=== PATIENT | female | born 1940 | race Caucasian/White ===

== ENCOUNTER 2020-11-05 11:16 | Emergency (ER) | payer MEDICARE, SELFPAY ==
--- NOTE | ~2020-11-05 | CT_ITS ---
EXAMINATION: CT HEAD WITHOUT CONTRAST CLINICAL INFORMATION: Dizziness. Nausea. COMPARISON: Brain MRI October 2017 TECHNIQUE: Contiguous axial imaging was performed from the skull base to vertex without intravenous administration of contrast. This CT examination was performed using dose optimization techniques as appropriate, variously including the following: *Automated exposure control *Adjustment of mA and/or kV according to patient size (this includes techniques or standardized protocols for targeted exams where dose is matched to indication/reason for exam; i.e. extremities or head) *Use of iterative reconstruction technique DLP: 612 mGy-cm FINDINGS: There is no evidence of acute intracranial hemorrhage or territorial infarction. No abnormal mass effect or midline shift is seen. [place] to white matter differentiation is well preserved. No extra-axial fluid collections are identified. The ventricles are normal in size. There is no abnormal attenuation within the brain parenchyma. The osseous structures and soft tissues are normal. The mastoid air cells and visualized portions of the paranasal sinuses are well aerated. CT/CT head/brain wo con IMPRESSION: Unremarkable exam.
--- NOTE | ~2020-11-05 | MR_ITS ---
EXAMINATION: MR BRAIN WITHOUT CONTRAST CLINICAL INFORMATION: Dizziness. COMPARISON: Brain MRI from 10/29/2017. CT head from 11/05/2020. TECHNIQUE: MRI of the brain was obtained using routine sequences without contrast. FINDINGS: No focal restricted diffusion is demonstrated to suggest acute or subacute cerebral ischemia. Chronic lacunar infarcts of the bilateral thalamic, right caudate body, and left cerebellar hemisphere. Mild hemosiderin staining associated with the lacunar infarct in the left cerebellar hemisphere. Punctate focus of susceptibility artifact in the left occipital lobe consistent with petechial microhemorrhage. Basal ganglia mineralization. No evidence of acute hemorrhagic products on heme-sensitive imaging. Scattered periventricular, deep white matter, and brainstem T2 FLAIR hyperintensities consistent with mild to moderate underlying microangiopathy. Proportional prominence of the ventricles and sulcal spaces without evidence of obstructive hydrocephalus. No abnormal mass effect. No midline shift. Normal appearance of the pituitary gland. Normal positioning of the cerebellar tonsils. Normal arterial and venous vascular flow voids are present. Normal, homogeneous marrow signal. Mild mucosal thickening of the paranasal sinuses. Small right-sided mastoid confusion. Pneumatization of the right petrous apex. Small left-sided mastoid effusion involving the petrous apex. MR/MR head/brain wo con IMPRESSION: 1. No acute intracranial abnormalities. 2. Mild to moderate underlying microangiopathy and generalized cerebral volume loss. 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 3. Small bilateral mastoid effusions.
--- NOTE | ~2020-11-05 | XR_ITS ---
EXAMINATION: XR CHEST CLINICAL INFORMATION: Dizziness and nausea COMPARISON: Previous chest x-ray most recent June 2017 TECHNIQUE: 2 views of the chest were obtained. FINDINGS: There is a new aortic valve stent graft. The cardiac and mediastinal contours are otherwise unremarkable. The lungs are clear. There is no pleural effusion or pneumothorax. There are degenerative changes of the spine. XR/XR chest 2V IMPRESSION: No evidence for acute disease in the chest.
[2020-11-05 13:10] VITALS: BP 143/52; PULSE 72; RESP 16; TEMP 35.9; O2SAT 97; BMI 29.1
--- NOTE | 2020-11-05 13:13 | ECG_ITS ---
Test Reason : DIZZINESS Blood Pressure : / mmHG Vent. Rate : 065 BPM Atrial Rate : 065 BPM P-R Int : 158 ms QRS Dur : 080 ms QT Int : 448 ms P-R-T Axes : 026 029 050 degrees QTc Int : 465 ms Normal sinus rhythm Normal ECG When compared with ECG of 29-OCT-2017 13:08, No significant change was found Referred By: Jacquelin Porter Electronically Signed By:NIMISHA NAYAK
--- NOTE | 2020-11-05 13:51 | ED.DIZZY ---
HPI - Dizziness General Chief Complaint: Dizziness Stated Complaint: DIZZY NAUSEA Time Seen by Provider: 11/05/20 13:10 Related Data Previous Rx's Medication Instructions Recorded meclizine 25 mg tablet 25 mg PO TID PRN #15 tab 11/05/20 ondansetron HCl 4 mg tablet 4 mg PO Q8H PRN #14 tab 11/05/20 (Zofran) Allergies Allergy/AdvReac Type Severity Reaction Status Date / Time No Known Allergies Allergy Unknown UNKNOWN Unverified 11/10/19 19:16 [NO KNOWN ALLERGIES] [facility] Past Medical History Medical History Diabetes Hypertension Surgical History (Updated 11/05/20 @ 13:13 by Shawna Berman RN) History of artificial heart valve Social History Social History Advance Directives: Yes Advance Directives Information Provided: Yes Advance Directives on File: No Physical Exam Vital Signs: Vital Signs: Last Vital Signs Temp 99.1 F 11/05/20 22:45 Pulse 88 11/05/20 22:45 Resp 16 11/05/20 22:45 BP 169/72 H 11/05/20 22:45 Pulse Ox 96 11/05/20 22:45 Body Mass Index 29.1 Course Course Course Narrative: 13:15pm - 80-year-old female presenting to the ED with complaints of 4-5 days of dizziness worse with standing with associated nausea. She reports that she got up from her bed a few days ago and she fell back into her bed due to she was so dizzy and she was unable to walk. On exam patient is alert and oriented x3. Not in any acute distress. Vital signs are stable within normal limits. She does not have any focal neuro deficits noted on my exam. Therefore patient was sent back to the waiting room and she will be evaluated in the main ED for further evaluation treatment labs along with EKG, chest x-ray and CT scan of brain was ordered at this time. MDM - Dizziness Lab Data Result diagrams: 11/05/20 15:03 11/05/20 15:03 Labs: Lab Results 11/05/20 11/05/20 11/05/20 Range/Units 15:03 15:03 15:03 WBC 12.1 H (4.8-10.8) X10*3/uL RBC 5.25 (4.20-5.50) X10*6/uL Hgb 15.6 (12.0-16.0) g/dl Hct 46.5 (37-47) % MCV 88.6 (80-98) fL MCH 29.7 (27.0-33.0) pg MCHC 33.5 (31.0-35.0) g/dl RDW 13.8 (11.0-16.0) % Plt Count 229 (160-400) X10*3/uL MPV 10.0 (9.4-12.3) fL Immature Gran % (Auto) 0.4 (0.0-0.4) % Neut % (Auto) 68.2 (45-73) % Lymph % (Auto) 20.4 (20-40) % [place] % (Auto) 7.9 (2-11) % Eos % (Auto) 2.5 (0-4) % Baso % (Auto) 0.6 (0-2) % Lymph # (Auto) 2.5 (1.2-4.9) X10*3/uL [place] # (Auto) 1.0 (0.1-1.2) X10*3/uL Eos # (Auto) 0.3 (0.0-0.4) X10*3/uL Baso # (Auto) 0.1 (0.0-0.2) X10*3/uL Abs Immat Gran (auto) 0.05 H (0.00-0.03) X10*3/uL Absolute Neuts (auto) 8.3 (2.0-8.3) X10*3/uL Absolute Nucleated RBC 0.000 (0.0-0.012) X10*3/uL Nucleated RBC % (auto) 0.0 (0.0-0.2) /100WBC PT 11.1 (9.9-13.0) SEC INR 1.0 (0.9-1.1) Sodium (135-145) mmol/L Potassium (3.3-5.1) mmol/L Chloride (96-108) mmol/L Carbon Dioxide (22-29) mmol/L Anion Gap (12-20) BUN (9-16) mg/dL Creatinine (0.5-1.4) mg/dL Estim Creat Clear Calc Estimated GFR POC Glucose (60-115) mg/dL Random Glucose (60-115) mg/dL Calcium (8.4-10.2) mg/dL Magnesium 2.1 (1.6-2.6) mg/dL Total Bilirubin (0.0-1.0) mg/dL AST (5-31) U/L ALT (0-31) U/L Alkaline Phosphatase (39-117) U/L Troponin I High Sens (<3.5-17.0) ng/L Total Protein (6.5-8.0) g/dL Albumin (3.5-5.0) g/dL 11/05/20 11/05/20 11/05/20 Range/Units 15:03 15:03 20:17 WBC (4.8-10.8) X10*3/uL RBC (4.20-5.50) X10*6/uL Hgb (12.0-16.0) g/dl Hct (37-47) % MCV (80-98) fL MCH (27.0-33.0) pg MCHC (31.0-35.0) g/dl RDW (11.0-16.0) % Plt Count (160-400) X10*3/uL MPV (9.4-12.3) fL Immature Gran % (Auto) (0.0-0.4) % Neut % (Auto) (45-73) % Lymph % (Auto) (20-40) % [place] % (Auto) (2-11) % Eos % (Auto) (0-4) % Baso % (Auto) (0-2) % Lymph # (Auto) (1.2-4.9) X10*3/uL [place] # (Auto) (0.1-1.2) X10*3/uL Eos # (Auto) (0.0-0.4) X10*3/uL Baso # (Auto) (0.0-0.2) X10*3/uL Abs Immat Gran (auto) (0.00-0.03) X10*3/uL Absolute Neuts (auto) (2.0-8.3) X10*3/uL Absolute Nucleated RBC (0.0-0.012) X10*3/uL Nucleated RBC % (auto) (0.0-0.2) /100WBC PT (9.9-13.0) SEC INR (0.9-1.1) Sodium 143 (135-145) mmol/L Potassium 4.6 (3.3-5.1) mmol/L Chloride 106 (96-108) mmol/L Carbon Dioxide 26 (22-29) mmol/L Anion Gap 16 (12-20) BUN 18 H (9-16) mg/dL Creatinine 0.86 (0.5-1.4) mg/dL Estim Creat Clear Calc 54.3 Estimated GFR > 60 POC Glucose 160 H (60-115) mg/dL Random Glucose 150 H (60-115) mg/dL Calcium 9.8 (8.4-10.2) mg/dL Magnesium (1.6-2.6) mg/dL Total Bilirubin 0.8 (0.0-1.0) mg/dL AST 12 (5-31) U/L ALT 12 (0-31) U/L Alkaline Phosphatase 115 (39-117) U/L Troponin I High Sens 8.4 (<3.5-17.0) ng/L Total Protein 7.3 (6.5-8.0) g/dL Albumin 4.7 (3.5-5.0) g/dL Discharge Plan Discharge Clinical Impression: Dizziness Patient Disposition: Home, Self-Care Instructions: Dizziness (ED) Prescriptions: New ondansetron HCl [Zofran] 4 mg tablet 4 mg PO Q8H PRN (Reason: nausea and vomiting) Qty: 14 RF: 0 meclizine 25 mg tablet 25 mg PO TID PRN (Reason: dizziness) Qty: 15 RF: 0 Interventions: ED Discharge Assessment Last Done: 11/05/20 23:32 Discharge Date/Time: 11/05/20 23:34
[2020-11-05 15:11] LABS: MANUAL DIFF FLAG NO
[2020-11-05 15:16] LABS: Basophils Absolute Auto 0.1 X10*3/uL (0.0-0.2); Basophils Percent Auto 0.6 % (0-2); Eosinophils Absolute Auto 0.3 X10*3/uL (0.0-0.4); Eosinophils Percent Auto 2.5 % (0-4); Hematocrit 46.5 % (37-47); Hemoglobin 15.6 g/dl (12.0-16.0); Imm Gran Abs Auto 0.05 X10*3/uL (0.00-0.03); Imm Gran Pct Auto 0.4 % (0.0-0.4); Lymphocytes Absolute Auto 2.5 X10*3/uL (1.2-4.9); Lymphocytes Percent Auto 20.4 % (20-40); Mean Corpuscular HGB Conc 33.5 g/dl (31.0-35.0); Mean Corpuscular Hemoglobin 29.7 pg (27.0-33.0); Mean Corpuscular Volume 88.6 fL (80-98); Monocytes Percent Auto 7.9 % (2-11); Neutrophils Absolute Auto 8.3 X10*3/uL (2.0-8.3); Neutrophils Percent Auto 68.2 % (45-73); Platelet Count 229 X10*3/uL (160-400); Red Blood Count 5.25 X10*6/uL (4.20-5.50); Red Cell Distribution Width 13.8 % (11.0-16.0); White Blood Count 12.1 X10*3/uL (4.8-10.8)
[2020-11-05 15:22] LABS: Prothrombin Time 11.1 SEC (9.9-13.0)
[2020-11-05 15:28] LABS: Magnesium 2.1 mg/dL (1.6-2.6)
[2020-11-05 15:29] LABS: Alanine Aminotransferase 12 U/L (0-31); Albumin Level 4.7 g/dL (3.5-5.0); Alkaline Phosphatase 115 U/L (39-117); Anion Gap 16 (12-20); Aspartate Amino Transferase 12 U/L (5-31); Bilirubin Total 0.8 mg/dL (0.0-1.0); Blood Urea Nitrogen 18 mg/dL (9-16); Calcium 9.8 mg/dL (8.4-10.2); Carbon Dioxide 26 mmol/L (22-29); Chloride 106 mmol/L (96-108); Creatinine Clr Calc Pharmacy 54.3; Estimated Glomerular Filt Rate > 60; Glucose Random 150 mg/dL (60-115); Potassium 4.6 mmol/L (3.3-5.1); Sodium 143 mmol/L (135-145); Total Protein 7.3 g/dL (6.5-8.0)
[2020-11-05 15:33] LABS: Troponin-I High Sensitivity 8.4 ng/L (<3.5-17.0)
[2020-11-05 18:45] VITALS: BP 171/74; PULSE 74; RESP 16; TEMP 35.9; O2SAT 96
--- NOTE | 2020-11-05 19:47 | ED_ITS ---
HPI - Dizziness General Chief Complaint: Dizziness Stated Complaint: DIZZY NAUSEA Time Seen by Provider: 11/05/20 13:10 Source: patient Mode of arrival: ambulatory Limitations: no limitations History of Present Illness HPI Narrative: dizzness X 5 Days elicited complaint: dizziness Onset (ago): day(s) (4) Timing: gradual onset Severity: moderate Description: off-balance Context: change in medication History of similar symptoms: Yes Exacerbating factors: nothing Relieving factors: nothing Related Data Previous Rx's Medication Instructions Recorded meclizine 25 mg tablet 25 mg PO TID PRN #15 tab 11/05/20 ondansetron HCl 4 mg tablet 4 mg PO Q8H PRN #14 tab 11/05/20 (Zofran) Allergies Allergy/AdvReac Type Severity Reaction Status Date / Time No Known Allergies Allergy Unknown UNKNOWN Unverified 11/10/19 19:16 [NO KNOWN ALLERGIES] Review of Systems Review of Systems: Yes all other systems are reviewed and are negative Constitutional: Constitutional: Reports no additional constitutional complaints ENT: Reports system reviewed and no additional complaints, except as documented and Reports dizziness Cardiovascular: Cardiovascular: Reports no additional cardiovascular complaints Respiratory: Respiratory: Reports no additional respiratory complaints Gastrointestinal: Gastrointestinal: Reports no additional gastrointestinal complaints, Denies abdominal pain and Denies belching Musculoskeletal: Musculoskeletal: Reports no additional musculoskeletal complaints Neurologic: Denies confusion and Reports dizziness Psychiatric: Psychiatric: Denies confusion [facility] Past Medical History Attestation statement: The following information was validated with the patient. Medical History Diabetes Hypertension Surgical History (Updated 11/05/20 @ 13:13 by Shawna Berman RN) History of artificial heart valve Social History Social History Advance Directives: Yes Advance Directives Information Provided: Yes Advance Directives on File: No Physical Exam Vital Signs: Vital Signs: Last Vital Signs Temp 96.7 F L 11/05/20 18:45 Pulse 74 11/05/20 18:45 Resp 16 11/05/20 18:45 BP 171/74 H 11/05/20 18:45 Pulse Ox 96 11/05/20 18:45 Body Mass Index 29.1 Const: General: No confusion Orientation/consciousness: oriented to person, oriented to place, oriented to time, patient oriented x3 and No confusion HENMT: Head: Yes normal to inspection General nose exam: Normal external nose present Face and sinus: Yes normal facial exam Mouth: Normal oral and palatal mucosa present Eyes: Other: non nistagmus General: appearance normal, both eyes and all related structures Visual Jewell: normal visual jewell by confrontation Alignment and Position: alignment normal Conjunctivae: conjunctivae normal EOM: EOMs intact bilaterally Neck: Neck: Yes normal visual inspection and Yes full ROM Thyroid: Thyroid normal Carotids: normal carotid upstroke Chest: Chest palpation & inspection: normal inspection of the chest Resp: Effort & Inspection: normal respiratory effort Auscultation: clear to auscultation bilaterally Cardio: Jugular venous distension: no JVD Rate: regular rate Rhythm: regular rhythm GI: Inspection: Yes normal to inspection and No distended Palpation (GI): Soft to palpation, not firm, nontender and no guarding Auscultation: normal bowel sounds : General: Yes no CVA tenderness Back/Spine/Pelvis: Back: no CVA tenderness Skin: General skin exam: no rashes or lesions noted, elasticity normal, turgor normal and atrophy Rashes: no rashes Neuro: General: oriented to person, oriented to place, oriented to time, patient oriented x3, CN's II-XI intact bilaterally and No confusion Course Reevaluation(s) Reevaluation #1: she is feeling better MRI brain brain normal,OK to d/c home with follow up with PCP Reevaluation #2: Spoke with the daughter at length as well Pt ambulating with steady gait MDM - Dizziness Lab Data Result diagrams: 11/05/20 15:03 11/05/20 15:03 Labs: Lab Results 11/05/20 11/05/20 11/05/20 Range/Units 15:03 15:03 15:03 WBC 12.1 H (4.8-10.8) X10*3/uL RBC 5.25 (4.20-5.50) X10*6/uL Hgb 15.6 (12.0-16.0) g/dl Hct 46.5 (37-47) % MCV 88.6 (80-98) fL MCH 29.7 (27.0-33.0) pg MCHC 33.5 (31.0-35.0) g/dl RDW 13.8 (11.0-16.0) % Plt Count 229 (160-400) X10*3/uL MPV 10.0 (9.4-12.3) fL Immature Gran % (Auto) 0.4 (0.0-0.4) % Neut % (Auto) 68.2 (45-73) % Lymph % (Auto) 20.4 (20-40) % [place] % (Auto) 7.9 (2-11) % Eos % (Auto) 2.5 (0-4) % Baso % (Auto) 0.6 (0-2) % Lymph # (Auto) 2.5 (1.2-4.9) X10*3/uL [place] # (Auto) 1.0 (0.1-1.2) X10*3/uL Eos # (Auto) 0.3 (0.0-0.4) X10*3/uL Baso # (Auto) 0.1 (0.0-0.2) X10*3/uL Abs Immat Gran (auto) 0.05 H (0.00-0.03) X10*3/uL Absolute Neuts (auto) 8.3 (2.0-8.3) X10*3/uL Absolute Nucleated RBC 0.000 (0.0-0.012) X10*3/uL Nucleated RBC % (auto) 0.0 (0.0-0.2) /100WBC PT 11.1 (9.9-13.0) SEC INR 1.0 (0.9-1.1) Sodium (135-145) mmol/L Potassium (3.3-5.1) mmol/L Chloride (96-108) mmol/L Carbon Dioxide (22-29) mmol/L Anion Gap (12-20) BUN (9-16) mg/dL Creatinine (0.5-1.4) mg/dL Estim Creat Clear Calc Estimated GFR POC Glucose (60-115) mg/dL Random Glucose (60-115) mg/dL Calcium (8.4-10.2) mg/dL Magnesium 2.1 (1.6-2.6) mg/dL Total Bilirubin (0.0-1.0) mg/dL AST (5-31) U/L ALT (0-31) U/L Alkaline Phosphatase (39-117) U/L Troponin I High Sens (<3.5-17.0) ng/L Total Protein (6.5-8.0) g/dL Albumin (3.5-5.0) g/dL 11/05/20 11/05/20 11/05/20 Range/Units 15:03 15:03 20:17 WBC (4.8-10.8) X10*3/uL RBC (4.20-5.50) X10*6/uL Hgb (12.0-16.0) g/dl Hct (37-47) % MCV (80-98) fL MCH (27.0-33.0) pg MCHC (31.0-35.0) g/dl RDW (11.0-16.0) % Plt Count (160-400) X10*3/uL MPV (9.4-12.3) fL Immature Gran % (Auto) (0.0-0.4) % Neut % (Auto) (45-73) % Lymph % (Auto) (20-40) % [place] % (Auto) (2-11) % Eos % (Auto) (0-4) % Baso % (Auto) (0-2) % Lymph # (Auto) (1.2-4.9) X10*3/uL [place] # (Auto) (0.1-1.2) X10*3/uL Eos # (Auto) (0.0-0.4) X10*3/uL Baso # (Auto) (0.0-0.2) X10*3/uL Abs Immat Gran (auto) (0.00-0.03) X10*3/uL Absolute Neuts (auto) (2.0-8.3) X10*3/uL Absolute Nucleated RBC (0.0-0.012) X10*3/uL Nucleated RBC % (auto) (0.0-0.2) /100WBC PT (9.9-13.0) SEC INR (0.9-1.1) Sodium 143 (135-145) mmol/L Potassium 4.6 (3.3-5.1) mmol/L Chloride 106 (96-108) mmol/L Carbon Dioxide 26 (22-29) mmol/L Anion Gap 16 (12-20) BUN 18 H (9-16) mg/dL Creatinine 0.86 (0.5-1.4) mg/dL Estim Creat Clear Calc 54.3 Estimated GFR > 60 POC Glucose 160 H (60-115) mg/dL Random Glucose 150 H (60-115) mg/dL Calcium 9.8 (8.4-10.2) mg/dL Magnesium (1.6-2.6) mg/dL Total Bilirubin 0.8 (0.0-1.0) mg/dL AST 12 (5-31) U/L ALT 12 (0-31) U/L Alkaline Phosphatase 115 (39-117) U/L Troponin I High Sens 8.4 (<3.5-17.0) ng/L Total Protein 7.3 (6.5-8.0) g/dL Albumin 4.7 (3.5-5.0) g/dL Imaging Data MRI - head: Radiologist's impression: ?in the left occipital lobe consistent with petechial microhemorrhage. Basal ganglia mineralization. No evidence of acute hemorrhagic products on heme-sensitive imaging. Scattered periventricular, deep white matter, and brainstem T2 FLAIR hyperintensities consistent with mild to moderate underlying microangiopathy. Proportional prominence of the ventricles and sulcal spaces without evidence of obstructive hydrocephalus. No abnormal mass effect. No midline shift. Normal appearance of the pituitary gland. Normal positioning of the cerebellar tonsils. Normal arterial and venous vascular flow voids are present. Normal, homogeneous marrow signal. Mild mucosal thickening of the paranasal sinuses. Small right-sided mastoid confusion. Pneumatization of the right petrous apex. Small left-sided mastoid effusion involving the petrous apex. MR/MR head/brain wo con IMPRESSION: 1. No acute intracranial abnormalities. 2. Mild to moderate underlying microangiopathy and generalized cerebral volume loss. 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 3. Small bilateral mastoid effusions. ECG Data Pacemaker model: NSR 65 no ischemic changes Discharge Plan Discharge Clinical Impression: Dizziness Patient Disposition: Home, Self-Care Instructions: Dizziness (ED) Prescriptions: New ondansetron HCl [Zofran] 4 mg tablet 4 mg PO Q8H PRN (Reason: nausea and vomiting) Qty: 14 RF: 0 meclizine 25 mg tablet 25 mg PO TID PRN (Reason: dizziness) Qty: 15 RF: 0
[2020-11-05 20:21] LABS: Glucose, Whole Blood 160 mg/dL (60-115)
[2020-11-05] MEDS: ondansetron HCL 4 MG/2 ML VIAL IVPUSH (21:35)
[2020-11-05] MEDS: 0.9 % Sodium Chloride 1,000 ML 999 ML IVCONT (21:35)
[2020-11-05] MEDS: Meclizine HCl 25 MG TABLET PO (21:36)
[2020-11-05 22:45] VITALS: BP 169/72; PULSE 88; RESP 16; TEMP 37.3; O2SAT 96
--- NOTE | 2020-11-05 23:32 | PC.NURSE ---
PT NO LONGER EXPERIENCING DIZZINESS FOLLOWING MECLIZINE. PT ABLE TO AMBULATE WITH STEADY GAIT. PT WAS NOT FEELING DIZZY AT HOME WHILE SUPINE, BUT INCREASED WHEN SEATED OR AMBULATORY. PT NO LONGER FEELING NAUSEA.
--- NOTE | 2020-11-05 23:34 | PC.NURSE ---
PT DID HAVE SANDWICH AND SODA AN HOUR AGO, NO VOMITING.
== END 2020-11-05 23:34 | disposition home or self-care (01) ==
PROVIDERS: Physician Assistant Medical; Emergency Provider Emergency Medicine
DX: R42 Dizziness and giddiness (principal); R11.0 Nausea; Z79.899 Other long term (current) drug therapy
CPT/HCPCS: 36415; 70450; 70551; 71046; 80053; 82947; 83735; 84484; 85025; 85610; 93005; 96361; 96365; 96374; 96375; 99284; 99285; J2405

== ENCOUNTER → 2021-11-04 10:52 | Outpatient (BNVA) | payer MEDICARE, SELFPAY | PROVIDERS: PCP Internal Medicine; Visit Provider Internal Medicine | DX: I48.0 Paroxysmal atrial fibrillation (principal); I05.9 Rheumatic mitral valve disease, unspecified; I73.9 Peripheral vascular disease, unspecified; I10 Essential (primary) hypertension; Z95.3 Presence of xenogenic heart valve | CPT/HCPCS: 93005; 99212 ==

== ENCOUNTER → 2021-11-26 14:56 | Outpatient (REF) | payer MEDICARE, SELFPAY ==
--- NOTE | 2021-11-26 14:59 | HM_ITS ---
Conclusion: 1. Patient was monitored for total period of 2 days and 22 hours 2. Baseline rhythm is normal sinus rhythm with average heart rate of 67 beats per minute 3. No significant pauses or bradycardia noted 4. Very rare ectopy noted 5. No patient reported events MTDD
== END ==
LOC: HO.CARD 14:56
PROVIDERS: Visit Provider Internal Medicine
DX: I48.0 Paroxysmal atrial fibrillation (principal)
CPT/HCPCS: 93242

== ENCOUNTER → 2022-02-11 13:56 | Outpatient (BNVA) | payer MEDICARE, SELFPAY | PROVIDERS: PCP Internal Medicine; Visit Provider Internal Medicine | DX: I48.0 Paroxysmal atrial fibrillation (principal); I05.9 Rheumatic mitral valve disease, unspecified; I73.9 Peripheral vascular disease, unspecified; I10 Essential (primary) hypertension; Z95.3 Presence of xenogenic heart valve; Z79.01 Long term (current) use of anticoagulants | CPT/HCPCS: 99212 ==

== ENCOUNTER → 2022-08-14 13:20 | Outpatient (BNVA) | payer MEDICARE, SELFPAY | PROVIDERS: PCP Internal Medicine; Referring Provider Internal Medicine; Visit Provider Internal Medicine | DX: I48.0 Paroxysmal atrial fibrillation (principal); I05.9 Rheumatic mitral valve disease, unspecified; I73.9 Peripheral vascular disease, unspecified; I10 Essential (primary) hypertension; Z95.3 Presence of xenogenic heart valve | CPT/HCPCS: 93005; 99212 ==

== ENCOUNTER 2023-07-07 11:00 | Emergency (ER) | payer MEDICARE, SELFPAY ==
[2023-07-07 11:07] VITALS: BP 135/61; PULSE 78; O2SAT 97
[2023-07-07 11:12] VITALS: BP 123/42; PULSE 74; RESP 16; TEMP 36.8; O2SAT 96; BMI 30.9
--- NOTE | 2023-07-07 12:14 | ED.GENADULT ---
HPI - General Adult General Chief complaint: General Medical Stated complaint: LOW BACK PAIN,BLISTERING PER DTR/?'S SHINGLES Time Seen by Provider: 07/07/23 12:14 Source: patient and EMS Mode of arrival: EMS Limitations: no limitations History of Present Illness HPI narrative: 82 yo female with history of diabetes, HTN, paroxysmal AFib on Xarelto, peripheral vascular disease, severe aortic stenosis status post TAVR who presents to the ER from home via EMS for severe pain in her lower back and right buttock area with a new rash for the last 3 days. Patient reports the rash is burning and 10/10 in severity. She reports she initially thought rash was just a small bedsores she has a history of a bedsore about 2 months ago. She was given a topical cream by her PCP which resulted in near complete resolution. She tried the cream again for this rash however did not help. MD complaint: Painful rash on lower back/right buttock Onset (ago): day(s) (3) Location: buttocks Radiation: distal Severity: severe Severity scale (1-10): 10 Quality: burning Pain Consistency: constant Relieving factors: none Exacerbating factors: movement Treatments prior to arrival: other (tramadol) Related Data Home Medications ?Medication ?Instructions ?Recorded ?Confirmed albuterol sulfate 90 mcg/actuation 0 mcg inhalation 11/04/21 08/14/22 aerosol inhaler amlodipine 10 mg tablet 10 mg PO DAILY 11/04/21 08/14/22 apixaban 5 mg tablet (Eliquis) 5 mg PO BID 11/04/21 08/14/22 aspirin 81 mg tablet,delayed 81 mg PO DAILY 11/04/21 08/14/22 release atorvastatin 40 mg tablet 40 mg PO DAILY 11/04/21 08/14/22 insulin detemir U-100 100 unit/mL 37 unit subcut BEDTIME 11/04/21 08/14/22 (3 mL) subcutaneous pen (Levemir FlexTouch U-100 Insulin) insulin lispro 100 unit/mL 15 unit subcut BID 11/04/21 08/14/22 subcutaneous pen (Humalog KwikPen (U-100) Insulin) losartan 25 mg tablet 25 mg PO DAILY 11/04/21 08/14/22 metoclopramide HCl 10 mg tablet 10 mg PO QID 11/04/21 08/14/22 metoprolol succinate 100 mg 150 mg PO DAILY 11/04/21 08/14/22 tablet,extended release 24 hr omeprazole 20 mg capsule,delayed 20 mg PO DAILY 11/04/21 08/14/22 release pregabalin 75 mg capsule 75 mg PO BID 11/04/21 08/14/22 tiotropium bromide 18 mcg capsule 1 cap inhalation DAILY 11/04/21 08/14/22 with inhalation device (Spiriva with HandiHaler) venlafaxine 37.5 mg 37.5 mg PO DAILY 11/04/21 08/14/22 capsule,extended release 24 hr cholecalciferol (vitamin D3) 25 25 mcg PO DAILY 02/11/22 08/14/22 mcg (1,000 unit) tablet (Vitamin D3) tramadol 50 mg tablet 50 mg PO TID PRN 02/11/22 08/14/22 Previous Rx's ?Medication ?Instructions ?Recorded valacyclovir 1 gram tablet 1,000 mg PO Q8H 7 days #21 tabs 07/07/23 Allergies Allergy/AdvReac Type Severity Reaction Status Date / Time No Known Allergies Allergy Unknown UNKNOWN Verified 07/07/23 11:24 [NO KNOWN ALLERGIES] Review of Systems Review of Systems: Yes all other systems are reviewed and are negative [facility] Past Medical History Medical History (Updated 07/07/23 @ 12:23 by MAURICE Dominguez) Essential hypertension Peripheral vascular disease Mitral annular calcification PAF (paroxysmal atrial fibrillation) Hypertension Diabetes Surgical History History of artificial heart valve Status post transcatheter aortic valve replacement (TAVR) using bioprosthesis Family History Family History Father Diabetes CAD (coronary artery disease) Mother CAD (coronary artery disease) Social History Social History Alcohol intake: never Patient Tobacco Use Status: Former Tobacco user Smoked in Last 30 Days: No Use of substances other than those prescribed or required for medical reasons: No Advance Directives: Yes Advance Directives on File: No Do you have a plan to hurt others: No Plan Physical Exam ED Vital Signs: Vital Signs - 24 hr 07/07/23 11:12 Temperature 98.2 F Pulse Rate 74 Respiratory Rate 16 Blood Pressure 123/42 L Pulse Oximetry 96 Oxygen Delivery Method Room Air BMI result Body Mass Index 30.9 Appearance: Alert. Oriented X3. No acute distress. Head: normocephalic, atraumatic. Eyes: Pupils equal, round and reactive to light. ENT: Pharynx normal. No tonsillar swelling or exudate. Neck: Normal inspection. CVS: Normal heart rate and rhythm. Pulses normal. Respiratory: No respiratory distress. Breath sounds normal. Abdomen: Soft and nontender. +BS x4 Skin: Skin warm and dry. Normal skin color. Normal skin turgor. vesicular rash on right gluteal region, tender Extremities: No lower extremity edema. No joint swelling. Neuro/psych: Oriented X 3. No motor deficit. No sensory deficit. CN II-XII intact. Normal speech and cognition. Medications Administered Discontinued Medications Generic Name Dose Route Start Last Admin Trade Name Freq PRN Reason Stop Dose Admin Acetaminophen 975 mg 07/07/23 12:22 07/07/23 12:30 Acetaminophen 325 Mg Tablet PO 07/07/23 12:23 975 mg ONCE ONE Administration Gabapentin 100 mg 07/07/23 12:22 07/07/23 12:29 Gabapentin 100 Mg Capsule PO 07/07/23 12:23 100 mg ONCE ONE Administration Valacyclovir HCl 1,000 mg 07/07/23 12:22 07/07/23 12:29 Valacyclovir Hcl 1,000 Mg Tablet PO 07/07/23 12:23 1,000 mg ONCE ONE Administration Medical Decision Making Medical Decision Making MDM Narrative: 82-year-old female with history of aortic stenosis status post TAVR, atrial fibrillation on anticoagulation, HTN, PVD who presents to the ER for evaluation of a painful, 10/10 burning rash on her low back and right buttock. Exam is consistent with shingles. No rectal involvement. Rash started 3 days ago. Will start her on antivirals now and initiate a 7 day course. She is already on gabapentin and tramadol at home for pain. Will continue these medications. Stable for discharge home. Differential Diagnosis Differential Diagnoses: The differential diagnosis associated with the presentation includes Shingles, disseminated zoster, cellulitis, perirectal abscess Independent Historian Clinical information obtained from an independent historian. History obtained from or confirmed by: EMS External Record Review External record reviewed: Outpatient record and Prior outpatient labs Prescription Management I considered prescription management with: Pain Medication and Antiviral Chronic Conditions Patient?s care impacted by: Hypertension and Other (AFib, chronic pain) Critical Care Time Critical Care Time Critical Care Time: No Discharge Plan Discharge Clinical Impression: Herpes zoster Qualifiers: Herpes zoster complications: without complications Qualified Code(s): B02.9 - Zoster without complications Patient Disposition: Home, Self-Care Instructions: Shingles (ED) Additional Instructions: You have a shingles rash. Take the prescribed antiviral medication as directed. Complete the entire course and do not miss any doses. Your given 1st dose today in the emergency department, next dose is due around 830 tonight. Take the previously prescribed gabapentin that will help with nerve pain. Recommend Tylenol 975 mg every 8 hours around the clock for pain. Follow-up with your doctor. If you develop new or worsening symptoms call 911 or come back to the ER for further evaluation. Prescriptions: New valacyclovir 1 gram tablet 1,000 mg PO Q8H 7 Days Qty: 21 0RF No Action cholecalciferol (vitamin D3) [Vitamin D3] 25 mcg (1,000 unit) tablet 25 mcg PO DAILY tramadol 50 mg tablet 50 mg PO TID PRN albuterol sulfate 90 mcg/actuation HFA aerosol inhaler 0 mcg inhalation losartan 25 mg tablet 25 mg PO DAILY Levemir FlexTouch U100 Insulin 100 unit/mL (3 mL) insulin pen 37 unit subcut BEDTIME venlafaxine 37.5 mg capsule,extended release 24hr 37.5 mg PO DAILY Eliquis 5 mg tablet 5 mg PO BID metoprolol succinate 100 mg tablet extended release 24 hr 150 mg PO DAILY Spiriva with HandiHaler 18 mcg capsule, w/inhalation device 1 cap inhalation DAILY metoclopramide HCl 10 mg tablet 10 mg PO QID amlodipine 10 mg tablet 10 mg PO DAILY atorvastatin 40 mg tablet 40 mg PO DAILY omeprazole 20 mg capsule,delayed release(DR/EC) 20 mg PO DAILY insulin lispro [Humalog KwikPen Insulin] 100 unit/mL insulin pen 15 unit subcut BID pregabalin 75 mg capsule 75 mg PO BID aspirin 81 mg tablet,delayed release (DR/EC) 81 mg PO DAILY Referrals: Shantal Hamm MD [Primary Care Provider] - Print Language: Kyrgyz
--- NOTE | 2023-07-07 12:24 | PC.NURSE ---
Pt presents to ED via EMS from home, reports lower back pain for past 3 days worsening, 12/02 now. Pt reports she initally thought she had a bed sore and was treating at home with OTC cream. Daughter checked her back today and noted blistering rash to lower back, ?shingles so daughter called for EMS. Pt reports severe aching pain to lower back area, blistering rashing noted above buttocks. Reports she felt like she had a fever yesterday. Denies any N/V/D, CP or SOB. Alert and oriented, breathing even and unlabored, skin warm and dry. Pt noted to be uncomfortable.
[2023-07-07] MEDS: valACYclovir HCL 1,000 MG TABLET 1000 MG PO (12:29)
[2023-07-07] MEDS: Gabapentin 100 MG CAPSULE PO (12:29)
[2023-07-07] MEDS: Acetaminophen 325 MG TABLET 975 MG PO (12:30)
[2023-07-07] MEDS: oxyCODONE HCl Immed Release 5 MG TABLET PO (13:28)
[2023-07-07] MEDS: Lidocaine 4 % Cream KIT 2 APPL TOPICAL (13:29)
[2023-07-07 14:45] VITALS: BP 116/57; PULSE 66; RESP 18; TEMP 36.6; O2SAT 94
[2023-07-07 14:46] VITALS: BP 116/57; PULSE 66; RESP 18; TEMP 36.6; O2SAT 94
== END 2023-07-07 14:52 | disposition home or self-care (01) ==
PROVIDERS: Emergency Provider Emergency Medicine; PCP Internal Medicine
DX: B02.9 Zoster without complications (principal); M54.50 Low back pain, unspecified; I10 Essential (primary) hypertension; G50.0 Trigeminal neuralgia; E11.8 Type 2 diabetes mellitus with unspecified complications; Z79.4 Long term (current) use of insulin; Z79.84 Long term (current) use of oral hypoglycemic drugs
CPT/HCPCS: 99283; 99284

== ENCOUNTER → 2023-07-31 08:44 | Outpatient (REF) | payer MEDICARE, SELFPAY ==
--- NOTE | 2023-07-31 08:49 | CA_ITS ---
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 Study Quality: Technically Difficult ECG Rhythm: Sinus Conclusions: - 1. Technically limited study 2. Normal LV ejection fraction 60 65% with impaired relaxation filling pattern 3. Normally function bioprosthetic aortic valve with measured mean gradient of 9 mm Hg 4. Heavy calcific mitral valve changes noted with mild mitral stenosis 5. Moderate left atrial enlargement Findings Left Ventricle The left ventricle was not well visualized. Normal left ventricular cavity size. The left ventricular systolic function is normal. The visually estimated ejection fraction is between 60-65%. Regional wall motion abnormalities can not be excluded due to suboptimal endocardial definition. Spectral Doppler is indicative of an impaired relaxation filling pattern. Right Ventricle Normal right ventricular cavity size. There is moderately decreased right ventricular systolic function. Atria The left atrium is moderately dilated. Interatrial shunt cannot be excluded. The right atrium is normal in size. Aortic Valve A bioprosthetic aortic valve is present. The prosthetic aortic valve appears to be functioning normally. The aortic valve was not well visualized. There is no aortic valve stenosis. The mean gradient is 9 mmHg. There is no aortic valve regurgitation. Mitral Valve The mitral valve was not well visualized. There is moderate anterior and severe posterior mitral leaflet thickening. There is moderate anterior mitral annular calcification. There is severe mitral annular calcification. There is no mitral valve regurgitation. There is mild mitral valve stenosis. Pulmonic Valve The pulmonic valve was not well visualized. Tricuspid Valve The tricuspid valve was not well visualized. Tricuspid regurgitation envelope is inadequate for calculation of right ventricular systolic pressure. Normal right atrial pressure. Great Vessels The aorta was not well visualized. The pulmonary artery was not well visualized. Venous The inferior vena cava is normal in size and collapses greater than 50% with inspiration. Pericardium/Pleural The pericardium was not well visualized. Prior Study Comparison Changes noted compared to prior study dated: 10/11/2019. mild calcific mitral stenosis noted Measurements 2D Linear Measurements LVIDd: 3.32 3.9-5.3/4.2-5.9 cm LVIDd Index: 1.79 2.4-3.2/2.2-3.1 cm/m2 LVIDs: 2.20 2.0-3.6 cm LA Diam: 3.90 2.7-3.8/3.0-4.0 cm LAIDs Index: 2.11 1.5-2.3 cm/m2 LVOT Diam: 1.80 3.0+(-)1.3 cm Mitral Valve MV VTI: 0.57 MV Pk Roger: 1.73 MV Mn Roger: 1.05 MV Pk Grad: 12.00 MV Mn Grad: 5.00 MV Pk E: 1.17 MV PK A: 1.51 MV Decel Time: 357.00 E/A: 0.80 E'Lateral: 5.87 E'Medial: 3.92 E/E' Med: 29.80 E/E' Lat: 19.90 PHT: 105.00 MVA PHT: 2.10 MVA Continuity: 1.09 Decel [place]: 3.27 Aortic Valve AoV Pk Roger: 1.95 AoV Mn Roger: 1.36 AoV VTI: 0.45 AoV Pk Grad: 15.00 Aov Mn Grad: 9.00 EDUARDO Cont.VTI: 1.36 LVOT LVOT Pk Roger: 1.12 LVOT Mn Roger: 0.83 LVOT VTI: 0.24 LVOT Pk Grad: 5.00 LVOT Mn Grad: 4.00 LVOT Diam: 1.80 LVOT Area: 2.54 Diastolic Function MV Pk E: 1.17 MV Pk A: 1.51 E/A: 0.80 E'Medial: 3.92 E/E' Med: 29.80 E' Laterial: 5.87 E/E' Lat: 19.90 Right Ventricle TAPSE (mm): 14.20 TVS' Roger: 5.66 Tricuspid Valve RA Press: 3.00 Pulmonary Valve PV Pk Roger: 0.95 Peak PV Grad: 4.00 Updated in Other Vendor System with Status of Final Srinivas Pierre MD electronically signed on 08/02/2023 12:47:54 PM with status of Final
== END ==
LOC: HO.CARD 08:44
PROVIDERS: Visit Provider Internal Medicine
DX: I25.10 Atherosclerotic heart disease of native coronary artery without angina pectoris (principal); Z95.3 Presence of xenogenic heart valve
CPT/HCPCS: 93306

== ENCOUNTER → 2023-07-31 08:49 | Outpatient (BNV) | payer MEDICARE, SELFPAY | PROVIDERS: Visit Provider Internal Medicine Cardiovascular Disease | DX: I34.2 Nonrheumatic mitral (valve) stenosis (principal); I34.81 Nonrheumatic mitral (valve) annulus calcification; Z95.3 Presence of xenogenic heart valve | CPT/HCPCS: 93306 ==

== ENCOUNTER 2023-08-04 12:59 | Outpatient (AMB) | payer MEDICARE, SELFPAY ==
--- NOTE | 2023-08-04 13:01 | A.OFFVIS_ITS ---
Vital Signs 08/04/23 13:02 Height 5 ft 4 in Weight 170 lb 10.205 oz BMI 29.3 BP 110/54 L Blood Pressure Location Lt brachial Position Sitting Pulse 66 Intake Visit Reasons: 1 year follow up after echo Client Success Manager Required: No Accompanied by: Son Allergies No Known Allergies [NO KNOWN ALLERGIES] Allergy (Unknown, Verified 07/07/23 11:24) UNKNOWN Medication List - Last Reconciled 08/04/23 by Zhen Bowling MD albuterol sulfate 90 mcg/actuation 0 mcg inhalation amlodipine 10 mg PO DAILY apixaban (Eliquis) 5 mg PO BID aspirin 81 mg PO DAILY atorvastatin 40 mg PO DAILY cholecalciferol (vitamin D3) (Vitamin D3) 25 mcg PO DAILY insulin detemir U-100 (Levemir FlexTouch U-100 Insulin) 37 units subcut BEDTIME insulin lispro (Humalog KwikPen (U-100) Insulin) 15 units subcut BID lidocaine 5% 1 appl topical BID PRN losartan 25 mg PO DAILY metoclopramide HCl 10 mg PO QID metoprolol succinate ER 150 mg PO DAILY omeprazole 20 mg PO DAILY pregabalin 75 mg PO BID tiotropium bromide (Spiriva with HandiHaler) 1 cap inhalation DAILY tramadol 50 mg PO TID PRN valacyclovir 1,000 mg PO Q8H 7 days venlafaxine ER 37.5 mg PO DAILY HPI Comments Details: Marylin returns for follow-up. She underwent transcatheter aortic valve replacement 2018. Otherwise, she seems to be okay from cardiac and does not have any clear-cut symptoms like angina or shortness of breath. Continues to have leg discomfort that seems to be vascular in nature. She also goes to [facility] as[facility]. [facility] Medical History (Updated 07/08/23 @ 00:00 by Suman Crews) Essential hypertension Peripheral vascular disease Mitral annular calcification PAF (paroxysmal atrial fibrillation) Hypertension Diabetes Surgical History Status post transcatheter aortic valve replacement (TAVR) using bioprosthesis History of artificial heart valve Family History Father Diabetes CAD (coronary artery disease) Mother CAD (coronary artery disease) Social History Alcohol intake: never Patient Tobacco Use Status: Former Tobacco user Review of Systems Const Denies chills, Denies fatigue, Denies fever(s), Denies frequent falls, Denies weakness, Denies weight gain and Denies weight loss ENT Denies dizziness Card Denies chest pain, Denies leg edema, Denies lightheadedness, Denies palpitations, Denies dyspnea and Denies dyspnea on exertion Resp Denies cough, Denies dyspnea and Denies dyspnea on exertion GI Denies hematochezia Musc Denies abnormal gait, Denies muscle weakness, Denies numbness, Denies radiating pain into limb and Denies tingling Neuro Denies abnormal gait, Denies dizziness, Denies frequent falls, Denies numbness, Denies tingling and Denies weakness Endo Denies fatigue and Denies palpitations Physical Exam Vital Signs: Last Vital Signs Pulse 66 08/04/23 13:02 BP 110/54 L 08/04/23 13:02 BMI result Body Mass Index 29.3 Const General: comfortable and no acute distress Orientation/consciousness: patient oriented x3 HEENT Other: Unremarkable Head: Yes normal to inspection Neck Neck: Yes normal visual inspection Chest Chest palpation & inspection: normal inspection of the chest Resp Auscultation: clear to auscultation bilaterally Cardio Palpation: normal PMI Heart sounds: S1 normal heart sound present, S2 normal heart sound present, no gallops, Murmur heart sound present systolic II/ and at the right sternal border and no rubs GI Palpation (GI): Soft to palpation Back/Spine/Pelvis Other: unremarkable Skin General skin exam: no rashes or lesions noted Neuro General: patient oriented x3 Extrem General: Yes normal to inspection Psych Mental Status: mental status grossly normal Office Procedures EKG Details: EKG with sinus rhythm at 66/Min; no significant ST-T changes and otherwise unr emarkable. [place]. [id number], Complete Assessment & Plan Assessment & Plan (1) PAF (paroxysmal atrial fibrillation): Code(s): I48.0 - Paroxysmal atrial fibrillation Category: Medical Plan: Stable. No recent issues. Continue beta-blockers, Eliquis. (2) Status post transcatheter aortic valve replacement (TAVR) using bioprosthesis: Code(s): Z95.3 - Presence of xenogenic heart valve Category: Surgical Plan: Status post left transcarotid TAVR for 2019. At that time, cardiac catheterization showed only mild disease. Normal function on the recent echocardiogram. She remains on aspirin. Infective endocarditis prophylaxis per protocol. (3) Mitral annular calcification: Code(s): I05.9 - Rheumatic mitral valve disease, unspecified Category: Medical Plan: Severe mitral annular calcification but no significant valvular dysfunction. Not much of an option even if this gets worse. Will need to follow up. (4) Peripheral vascular disease: Code(s): I73.9 - Peripheral vascular disease, unspecified Category: Medical Plan: Follow-up with [facility] vascular surgery. (5) Essential hypertension: Code(s): I10 - Essential (primary) hypertension Category: Medical Plan: Stable. No changes. Coding Level of Care Code Est Pt Level 4 (18705) Diagnoses PAF (paroxysmal atrial fibrillation) I48.0 Status post transcatheter aortic valve replacement (TAVR) using bioprosthesis Z95.3 Mitral annular calcification I05.9 Peripheral vascular disease I73.9 Essential hypertension I10 CPT Codes EKG - CPT: 03745-[id number], Complete ([id number])
[2023-08-04 13:02] VITALS: BP 110/54; PULSE 66; BMI 29.3
== END 2023-08-04 13:25 | disposition home or self-care (01) ==
PROVIDERS: PCP Internal Medicine; Visit Provider Internal Medicine
DX: I48.0 Paroxysmal atrial fibrillation (principal); Z95.3 Presence of xenogenic heart valve; I05.9 Rheumatic mitral valve disease, unspecified; I73.9 Peripheral vascular disease, unspecified; I10 Essential (primary) hypertension
CPT/HCPCS: 93010; 99214

== ENCOUNTER → 2023-08-04 12:59 | Outpatient (BNVA) | payer MEDICARE, SELFPAY | PROVIDERS: PCP Internal Medicine; Visit Provider Internal Medicine | DX: I48.0 Paroxysmal atrial fibrillation (principal); I05.9 Rheumatic mitral valve disease, unspecified; I73.9 Peripheral vascular disease, unspecified; I10 Essential (primary) hypertension; Z95.3 Presence of xenogenic heart valve | CPT/HCPCS: 93005; 99212 ==

== ENCOUNTER → 2023-12-21 12:32 | Outpatient (REF) | payer MEDICARE, SELFPAY ==
--- NOTE | 2023-12-21 14:10 | HM_ITS ---
* Total monitoring time 3 days. * Rhythm seems to be mainly atrial fibrillation. Some areas possible sinus but not definitive. * While in atrial fibrillation, maximum rate up to 174/Min. * No significant pauses or high-grade AV blocks. * No patient markers or diary events. MTDD
== END ==
LOC: HO.CARD 12:32
PROVIDERS: PCP Internal Medicine; Visit Provider Internal Medicine
DX: I48.0 Paroxysmal atrial fibrillation (principal)
CPT/HCPCS: 93005; 93242; 99212

== ENCOUNTER 2023-12-21 12:48 | Outpatient (AMB) | payer MEDICARE, SELFPAY ==
[2023-12-21 12:50] VITALS: BP 118/60; PULSE 78; BMI 28.8
--- NOTE | 2023-12-21 12:50 | MHC.OFFVIS ---
Vital Signs 12/21/23 12:50 Height 5 ft 4 in Weight 167 lb 8.821 oz BMI 28.8 BP 118/60 Blood Pressure Location Lt brachial Position Sitting Pulse 78 Pulse Source Pulse Oximeter Intake Visit Reasons: f/u CAD Allergies No Known Allergies [NO KNOWN ALLERGIES] Allergy (Unknown, Verified 07/07/23 11:24) UNKNOWN Medication List - Last Reconciled 12/21/23 by Zhen Bowling MD albuterol sulfate 90 mcg/actuation 0 mcg inhalation amlodipine 10 mg PO DAILY apixaban (Eliquis) 5 mg PO BID aspirin 81 mg PO DAILY atorvastatin 40 mg PO DAILY cholecalciferol (vitamin D3) (Vitamin D3) 25 mcg PO DAILY dapagliflozin propanediol 10 mg PO DAILY furosemide 20 mg PO BID insulin detemir U-100 (Levemir FlexTouch U-100 Insulin) 37 units subcut BEDTIME insulin lispro (Humalog KwikPen (U-100) Insulin) 15 units subcut BID lidocaine 5% 1 appl topical BID PRN losartan 25 mg PO DAILY metoclopramide HCl 10 mg PO QID metoprolol succinate ER 150 mg PO DAILY omeprazole 20 mg PO DAILY tiotropium bromide (Spiriva with HandiHaler) 1 cap inhalation DAILY tramadol 50 mg PO TID PRN venlafaxine ER 37.5 mg PO DAILY HPI Comments Details: Marylin returns for follow-up. She underwent transcatheter aortic valve replacement 2018. It seems that she was recently admitted to [facility]. Thought to be from congestive heart failure. According to discharge summary, she was treated also for pneumonia. During this visit, Lasix/Farxiga were added. Patient states she is still feeling short of breath. She is also feeling heart racing and some dizziness. In the ER note, there is mention of atrial fibrillation rapid rate. However, it does not appear any new meds were added in that regard. [facility] Medical History (Updated 12/21/23 @ 13:31 by Zhen Bowling MD) Essential hypertension Peripheral vascular disease Mitral annular calcification PAF (paroxysmal atrial fibrillation) Hypertension Diabetes Surgical History Status post transcatheter aortic valve replacement (TAVR) using bioprosthesis History of artificial heart valve Family History Father Diabetes CAD (coronary artery disease) Mother CAD (coronary artery disease) Social History Alcohol intake: never Patient Tobacco Use Status: Former Tobacco user Review of Systems Const Denies weakness ENT Denies dizziness Card Denies chest pain, Denies chest pain with activity, Denies syncope, Denies rapid heart rate, Denies pedal edema, Denies edema, Denies leg edema, Denies lightheadedness, Denies palpitations, Denies dyspnea, Denies dyspnea on exertion and Denies orthopnea Resp Denies cough, Denies dyspnea and Denies dyspnea on exertion GI Denies hematochezia and Denies change in stool character Musc Denies abnormal gait, Denies muscle cramps, Denies muscle weakness, Denies numbness, Denies radiating pain into limb and Denies tingling Neuro Denies abnormal gait, Denies dizziness, Denies syncope, Denies numbness, Denies tingling and Denies weakness Endo Denies palpitations Physical Exam Vital Signs: Last Vital Signs Pulse 78 12/21/23 12:50 BP 118/60 12/21/23 12:50 BMI result Body Mass Index 28.8 Const General: comfortable and no acute distress Orientation/consciousness: patient oriented x3 HEENT Other: Unremarkable Head: Yes normal to inspection Neck Neck: Yes normal visual inspection Chest Chest palpation & inspection: normal inspection of the chest Resp Auscultation: clear to auscultation bilaterally Cardio Palpation: normal PMI Heart sounds: S1 normal heart sound present, S2 normal heart sound present, no gallops, Murmur heart sound present systolic II/ and at the right sternal border and no rubs GI Palpation (GI): Soft to palpation Back/Spine/Pelvis Other: unremarkable Skin General skin exam: no rashes or lesions noted Neuro General: patient oriented x3 Extrem General: Yes normal to inspection Psych Mental Status: mental status grossly normal Office Procedures EKG Details: EKG today shows narrow complex tachycardia at 114/Min. This could be either sinus tachycardia with PACs; atrial tachycardia versus atrial flutter/fibrillation. Difficult to assess. [id number], Complete Assessment & Plan Assessment & Plan (1) Acute diastolic (congestive) heart failure: Code(s): I50.31 - Acute diastolic (congestive) heart failure Category: Medical Plan: Uncertain etiology. Clinically she does not appear volume overloaded. She may remain on diuretics. Also Farxiga. (2) PAF (paroxysmal atrial fibrillation): Code(s): I48.0 - Paroxysmal atrial fibrillation Category: Medical Plan: By today's EKG, possible atrial fibrillation with rapid rate but difficult to assess. Cannot exclude sinus tachycardia with PACs. [facility] EKGs were reviewed. To me, it is suggestive of rather probably sinus rhythm with a very long HI. She remains on beta-blockers and Eliquis. (3) Status post transcatheter aortic valve replacement (TAVR) using bioprosthesis: Code(s): Z95.3 - Presence of xenogenic heart valve Category: Surgical Plan: Status post left transcarotid TAVR for 2019. At that time, cardiac catheterization showed only mild disease. In the recent echocardiogram from [facility], LVEF is 60-65%. No wall motion abnormalities. Normally functioning bioprosthetic aortic valve. On aspirin. Infective endocarditis prophylaxis per protocol. (4) Mitral annular calcification: Code(s): I05.9 - Rheumatic mitral valve disease, unspecified Category: Medical Plan: In the recent echocardiogram, severe mitral annular calcification and described to have progressive mitral stenosis with a mean gradient of 7 mm Hg at 80 beats a minute. I doubt if she will be a candidate for any interventions. (5) Peripheral vascular disease: Code(s): I73.9 - Peripheral vascular disease, unspecified Category: Medical Plan: Follow-up with [facility] vascular surgery. (6) Essential hypertension: Code(s): I10 - Essential (primary) hypertension Category: Medical Plan: Stable. No changes. Plan Discussed with family who came for appointment. Orders: Orders ECG 3 day holter monitor Today I48.0 - Paroxysmal atrial fibrillation Coding Level of Care Code Est Pt Level 4 (97303) Diagnoses Acute diastolic (congestive) heart failure I50.31 PAF (paroxysmal atrial fibrillation) I48.0 Status post transcatheter aortic valve replacement (TAVR) using bioprosthesis Z95.3 Mitral annular calcification I05.9 Peripheral vascular disease I73.9 Essential hypertension I10 CPT Codes EKG - CPT: 94213-[id number], Complete ([id number])
== END 2023-12-21 13:22 | disposition home or self-care (01) ==
LOC: HO.HCS 12:48
PROVIDERS: PCP Internal Medicine; Visit Provider Internal Medicine
DX: I48.91 Unspecified atrial fibrillation (principal)
CPT/HCPCS: 93010; 93244; 99214

== ENCOUNTER → 2023-12-21 12:48 | Outpatient (BNVA) | payer MEDICARE, SELFPAY | LOC: HO.CARD 13:47 → CF 13:53 | PROVIDERS: PCP Internal Medicine; Visit Provider Internal Medicine | DX: I11.0 Hypertensive heart disease with heart failure (principal); I50.31 Acute diastolic (congestive) heart failure; I48.0 Paroxysmal atrial fibrillation; I05.9 Rheumatic mitral valve disease, unspecified; I73.9 Peripheral vascular disease, unspecified; Z95.3 Presence of xenogenic heart valve | CPT/HCPCS: 93005; 99212 ==

== ENCOUNTER 2024-10-31 13:18 | Outpatient (AMB) | payer MEDICARE, SELFPAY ==
[2024-10-31 13:38] VITALS: BP 130/68; PULSE 67; BMI 28.7
--- NOTE | 2024-10-31 13:38 | MHC.OFFVIS ---
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 She underwent transcatheter aortic valve replacement 2018. Over the last year or so, she has been diagnosed with atrial fibrillation and has had many other admissions. 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 Following that, it another hospitalization in [place] for pneumonia when she was again quite ill. After all this, she is still recovered completely and almost back to her normal self. She is still quite frail but feels better after the pacemaker. No new cardiac symptoms. Because a lot of her hospitalizations or in [facility] and elsewhere it becomes very difficult to put all this information together. [facility] Medical History (Updated 10/31/24 @ 15:40 by Zhen Bowling MD) Essential hypertension Peripheral vascular disease Mitral annular calcification PAF (paroxysmal atrial fibrillation) Hypertension Diabetes Surgical History Status post transcatheter aortic valve replacement (TAVR) using bioprosthesis History of artificial heart valve Family History Father Diabetes CAD (coronary artery disease) Mother CAD (coronary artery disease) Social History Alcohol intake: never Patient Tobacco Use Status: Former Tobacco user Review of Systems Const Denies weakness ENT Denies dizziness Card Denies chest pain, Denies chest pain with activity, Denies syncope, Denies rapid heart rate, Denies pedal edema, Denies edema, Denies leg edema, Denies lightheadedness, Denies palpitations, Denies dyspnea, Denies dyspnea on exertion and Denies orthopnea Resp Denies cough, Denies dyspnea and Denies dyspnea on exertion GI Denies hematochezia and Denies change in stool character Musc Denies abnormal gait, Denies muscle cramps, Denies muscle weakness, Denies numbness, Denies radiating pain into limb and Denies tingling Neuro Denies abnormal gait, Denies dizziness, Denies syncope, Denies numbness, Denies tingling and Denies weakness Endo Denies palpitations Physical Exam Vital Signs: Last Vital Signs Pulse 67 10/31/24 13:38 BP 130/68 10/31/24 13:38 BMI result Body Mass Index 28.7 Const General: comfortable and no acute distress Orientation/consciousness: patient oriented x3 HEENT Other: Unremarkable Head: Yes normal to inspection Neck Neck: Yes normal visual inspection Chest Chest palpation & inspection: normal inspection of the chest Resp Auscultation: clear to auscultation bilaterally Cardio Palpation: normal PMI Heart sounds: S1 normal heart sound present, S2 normal heart sound present, no gallops, Murmur heart sound present systolic II/ and at the right sternal border and no rubs GI Palpation (GI): Soft to palpation Back/Spine/Pelvis Other: unremarkable Skin General skin exam: no rashes or lesions noted Neuro General: patient oriented x3 Extrem General: Yes normal to inspection Psych Mental Status: mental status grossly normal Office Procedures Cardiac Device Check Cardiac Device Check Details: Pacemaker interrogated today. Dual-chamber device, programmed DDD. Battery status 12.4 years. Normal lead parameters. 5 episodes of atrial fibrillation in July, longest 18 hours. Mostly controlled rates. Atrial pacing 37%. Ventricular pacing 58%. Overall AT/AF burden 1.4%. [id number] Cardiac Device Check, pacemaker dual lead Procedure code (CPT) selection complete EKG Details: EKG with atrial sensed, ventricular paced rhythm at 67/Min. [id number], Complete Assessment & Plan Assessment & Plan (1) Chronic heart failure with preserved ejection fraction: Code(s): I50.32 - Chronic diastolic (congestive) heart failure Category: Medical Plan: Continue diuretics. Jeaneth no longer on her list and she isn't aware of the med names either. (2) PAF (paroxysmal atrial fibrillation): Code(s): I48.0 - Paroxysmal atrial fibrillation Category: Medical Plan: She is on amiodarone, metoprolol, Eliquis. Check TSH levels. (3) Status post transcatheter aortic valve replacement (TAVR) using bioprosthesis: Code(s): Z95.3 - Presence of xenogenic heart valve Category: Surgical Plan: Status post left transcarotid TAVR for 2019. At that time, cardiac catheterization showed only mild disease. On aspirin. Infective endocarditis prophylaxis per protocol. (4) Mitral annular calcification: Code(s): I05.9 - Rheumatic mitral valve disease, unspecified Category: Medical Plan: She has severe mitral annular calcification and some mitral stenosis. To be followed. (5) Essential hypertension: Code(s): I10 - Essential (primary) hypertension Category: Medical Plan: Stable. No changes. Plan Discussed with family who came for appointment. Orders: Orders TSH reflex Free T4 Today I48.0 - Paroxysmal atrial fibrillation, R94.6 - Abnormal results of thyroid function studies Coding Level of Care Code Est Pt Level 4 (32450) Complex EM visit Add On G2211 Diagnoses Chronic heart failure with preserved ejection fraction I50.32 PAF (paroxysmal atrial fibrillation) I48.0 Status post transcatheter aortic valve replacement (TAVR) using bioprosthesis Z95.3 Mitral annular calcification I05.9 Essential hypertension I10 CPT Codes Cardiac Device Check - Cardiac Device 2: [id number] Cardiac Device Check, pacemaker dual lead ([id number]) EKG - CPT: 96513-[id number], Complete ([id number])
--- OUTSIDE RECORDS SUMMARY | 2024-10-31 15:37 | XMS_ITS | Encounter Summary ---
Author Organization [facility] Address [address] [place] [address] Care Team Providers Care Newsstand Vendor Name Role Phone Chanda Cummins MD Primary Care Provider [phone] Encounter Details Date Type Department Care Team (Late st Contact Info) Description 05/11/2024 Lab Requisition [facility] - Main Lab [address] [facility] [place] [address] Chanda Cummins MD [address] [place] [address] Essential (primary) hypertension Social History Tobacco Use Types Packs/Day Years Used Date Smoking Tobacco: Never Assessed Comments Unknown Sex and Gender Information Value Date Recorded Sex Assigned at Not on file Legal Sex Female 1:18 PM EST Gender Identity Not on file Sexual Orientation Not on file documented as of this encounter Plan of Treatment Not on file documented as of this encounter Visit Diagnoses Diagnosis Essential (primary) hypertension Unspecified essential hypertension documented in this encounter Care Teams Newsstand Vendor Relationship Specialty Start Date End Date Chanda Cummins MD [address] [place] [address] PCP - General Geriatric Medicine 04/27/24 documented as of this encounter
--- OUTSIDE RECORDS SUMMARY | 2024-10-31 15:37 | XMS_ITS | Encounter Summary ---
Author Organization [facility] Address [address] [place] [address] Care Team Providers Care Alumni Coordinator Name Role Phone Chanda Cummins MD Primary Care Provider [phone] Encounter Details Date Type Department Care Team (Late st Contact Info) Description 05/06/2024 Lab Requisition [facility] - Main Lab [address] [facility] [place] [address] Chanda Cummins MD [address] [place] [address] Heart failure, unspecified (CMS/HCC V24, CMS/HCC V28) Social History Tobacco Use Types Packs/Day Years Used Date Smoking Tobacco: Never Assessed Comments Unknown Sex and Gender Information Value Date Recorded Sex Assigned at Not on file Legal Sex Female 1:18 PM EST Gender Identity Not on file Sexual Orientation Not on file documented as of this encounter Plan of Treatment Not on file documented as of this encounter Procedures Procedure Name Priority Date/Time Associated Diagnosis Comments SST - GOLD Routine 05/06/2024 5:57 AM EDT Heart failure, unspecified (CMS/HCC) COMPLETE BLOOD COUNT Routine 05/06/2024 5:57 AM EDT Heart failure, unspecified (CMS/HCC) documented in this encounter Results * SST tube (05/06/2024 5:57 AM EDT) Extra Tube Hold for add-ons. 05/06/2024 10:01 AM EDT [facility] Comment:Auto resulted. Blood Venous blood specimen / Unknown Venipuncture / Unknown 05/06/2024 5:57 AM EDT 05/06/2024 8:26 AM EDT us Chanda Cummins MD LAB BLOOD ORDERABLES Final Resul t [facility] [address] [place] [address], [place] [phone] * Complete blood count (05/06/2024 5:57 AM EDT) WBC 9.4 4.8 - 10.8 K/mcL LAB HEMETOLOGY METHOD 05/06/2024 9:27 AM EDT [facility] RBC 4.30 3.80 - 4.80 M/mcL LAB HEMETOLOGY METHOD 05/06/2024 9:27 AM EDT [facility] Hemoglobin 12.8 11.5 - 16.0 g/dL LAB HEMETOLOGY METHOD 05/06/2024 9:27 AM EDT [facility] Hematocrit 40.0 35.0 - 47.0 % LAB HEMETOLOGY METHOD 05/06/2024 9:27 AM EDT [facility] MCV 93.7 79.0 - 98.0 FL LAB HEMETOLOGY METHOD 05/06/2024 9:27 AM EDT [facility] MCH 30.0 27.0 - 32.0 pcg LAB HEMETOLOGY METHOD 05/06/2024 9:27 AM EDT [facility] MCHC 32.0 32.0 - 37.0 g/dL LAB HEMETOLOGY METHOD 05/06/2024 9:27 AM EDT [facility] RDW 14.2 11.0 - 15.0 % LAB HEMETOLOGY METHOD 05/06/2024 9:27 AM EDT [facility] Platelets 258 130 - 400 K/mcL LAB HEMETOLOGY METHOD 05/06/2024 9:27 AM EDT [facility] MPV 9.8 7.0 - 11.0 FL LAB HEMETOLOGY METHOD 05/06/2024 9:27 AM EDT [facility] NRBC 0.0 <1.0 % LAB HEMETOLOGY METHOD 05/06/2024 9:27 AM EDT [facility] NRBC Absolute 0.00 <0.10 K/mcL LAB HEMETOLOGY METHOD 05/06/2024 9:27 AM EDT [facility] Blood Venous blood specimen / Unknown Venipuncture / Unknown 05/06/2024 5:57 AM EDT 05/06/2024 8:26 AM EDT Chanda Cummins MD LAB BLOOD ORDERABLES Final Resul t [facility] [address] [place] [address], documented in this encounter Visit Diagnoses Diagnosis Heart failure, unspecified (CMS/HCC V24, CMS/HCC V28) Heart failure, unspecified documented in this encounter Care Teams Alumni Coordinator Relationship Specialty Start Date End Date Chanda Cummins MD [address] [place] [address] [address] [place] [address] PCP - General Geriatric Medicine 04/27/24 documented as of this encounter
--- OUTSIDE RECORDS SUMMARY | 2024-10-31 15:37 | XMS_ITS | Encounter Summary ---
Author Organization [facility] Address [address] [place] [address] Care Team Providers Care Recreation Worker Name Role Phone Chanda Cummins MD Primary Care Provider [phone] Encounter Details Date Type Department Care Team (Late st Contact Info) Description 09/12/2024 Lab Requisition [facility] - Main Lab [address] [place] [address] Payal Hung MD [address] [place] [id number] Urinary tract infection, site not specified Social History Tobacco Use Types Packs/Day Years [...] Procedure Name Priority Date/Time Associated Diagnosis Comments URINALYSIS WITH REFLEX MICROSCOPIC Routine 09/09/2024 12:00 AM EDT Urinary tract infection, site not specified URINALYSIS WITH REFLEX MICROSCOPIC Routine 09/09/2024 12:00 AM EDT Urinary tract infection, site not specified CULTURE URINE Routine 09/09/2024 12:00 AM EDT Urinary tract infection, site not specified documented in this encounter Results * (ABNORMAL) Urinalysis with reflex microscopic (09/09/2024 12:00 AM EDT) Specific Lyndon Urine 1.016 1.003 - 1.030 LAB URINALYSIS - AUTOMATED METHOD 09/12/2024 11:07 AM EDT [facility] pH, Urine 6.5 5.0 - 8.0 pH LAB URINALYSIS - AUTOMATED METHOD 09/12/2024 11:07 AM [facility] Leukocytes, Urine Large(A) Negative LAB URINALYSIS - AUTOMATED METHOD 09/12/2024 11:07 AM [facility] Nitrite, Urine Negative Negative LAB URINALYSIS - AUTOMATED METHOD 09/12/2024 11:07 AM [facility] Protein, Urine 30(A) <=Trace mg/dL LAB URINALYSIS - AUTOMATED METHOD 09/12/2024 11:07 AM [facility] Glucose, Urine Negative Negative mg/dL LAB URINALYSIS - AUTOMATED METHOD 09/12/2024 11:07 AM [facility] Ketones, Urine Trace(A) Negative mg/dL LAB URINALYSIS - AUTOMATED METHOD 09/12/2024 11:07 AM [facility] Urobilinogen , Urine 0.2 0.2 - 1.0 mg/dL LAB URINALYSIS - AUTOMATED METHOD 09/12/2024 11:07 AM [facility] Bilirubin, Urine Negative Negative LAB URINALYSIS - AUTOMATED METHOD 09/12/2024 11:07 AM [facility] Blood, Urine Trace(A) Negative LAB URINALYSIS - AUTOMATED METHOD 09/12/2024 11:07 AM [facility] RBC, Urine 0.0 0 - 4 /HPF LAB URINALYSIS - AUTOMATED METHOD 09/12/2024 11:07 AM [facility] WBC, Urine 82.5(H) 0 - 4 /HPF LAB URINALYSIS - AUTOMATED METHOD 09/12/2024 11:07 AM [facility] Squamous Epithelial, Urine >100(H) 0 - 60 /LPF LAB URINALYSIS - AUTOMATED METHOD 09/12/2024 11:07 AM [facility] Non-Squamous Epithelial, Urine >30 TRANSITIONAL EPI /LPF LAB URINALYSIS - AUTOMATED METHOD 09/12/2024 11:07 AM EDT [facility] Crystals, Urine HEAVY CALCIUM OXALATE /LPF LAB URINALYSIS - AUTOMATED METHOD 09/12/2024 11:07 AM EDT [facility] Bacteria, Urine Moderate(A) Negative /HPF LAB URINALYSIS - AUTOMATED METHOD 09/12/2024 11:07 AM EDT [facility] Hyaline Casts, Urine 0.0 0 - 3 /LPF LAB URINALYSIS - AUTOMATED METHOD 09/12/2024 11:07 AM EDT [facility] Yeast, Urine Present(A) None /HPF LAB URINALYSIS - AUTOMATED METHOD 09/12/2024 11:07 AM EDT [facility] Urine Urine specimen obtained by clean catch procedure / Unknown Non-blood Collection / Unknown 09/09/2024 09/12/2024 10:19 AM EDT Payal Hung MD LAB URINE ORDERABLES Final Resu lt [facility] [address] [place] [address], [place] [phone] * Culture urine (09/09/2024 12:00 AM EDT) Culture, Urine >100,000 CFU/mL Mixed bacterial morphotypes present suggestive of possible contamination during collection. Suggest appropriate recollection if clinically indicated. 09/13/2024 10:02 AM EDT [facility] Urine Urine specimen obtained by clean catch procedure / Unknown Non-blood Collection / Unknown 09/09/2024 09/12/2024 10:19 AM EDT us Payal Hung MD LAB MICROBIOLOGY - GENERAL ORDE RABLES Final Result [facility] [address] [place] [address], [place] [phone] documented in this encounter Visit Diagnoses Diagnosis Urinary tract infection, site not specified documented in this encounter Care Teams Recreation Worker Relationship Specialty Start Date End Date Chanda Cummins MD [address] [place] [address] [address] [place] [address] PCP - General Geriatric Medicine 04/27/24 documented as of this encounter
--- OUTSIDE RECORDS SUMMARY | 2024-10-31 15:37 | XMS_ITS | Encounter Summary ---
[facility] Organization [facility] Address [address] [place] [address] Care Team Providers Care Security Operations Manager Name Role Phone Chanda Cummins MD Primary Care Provider [phone] Encounter Details Date Type Department Care Team (Late st Contact Info) Description 05/05/2024 Lab Requisition [facility] - Main Lab [address] [facility] [place] [address] Chanda Cummins MD [address] [place] [address] Type 2 diabetes mellitus without complications (CMS/HCC V24, CMS/HCC V28); Essential (primary) hypertension Social History Tobacco Use [...] Procedure Name Priority Date/Time Associated Diagnosis Comments COMPLETE BLOOD COUNT Routine 05/05/2024 9:06 AM EDT Type 2 diabetes mellitus without complications (CMS/HCC) Essential (primary) hypertension HEMOGLOBIN A1C Routine 05/05/2024 9:06 AM EDT Type 2 diabetes mellitus without complications (CMS/HCC) Essential (primary) hypertension BASIC METABOLIC PANEL Routine 05/05/2024 9:06 AM EDT Type 2 diabetes mellitus without complications (CMS/HCC) Essential (primary) hypertension documented in this encounter Results * (ABNORMAL) Basic metabolic panel (05/05/2024 9:06 AM EDT) Sodium 142 133 - 145 mmol/L LAB CHEMISTRY METHOD 05/05/2024 10:49 AM [facility] Potassium 4.3 3.5 - 5.5 mmol/L LAB CHEMISTRY METHOD 05/05/2024 10:49 AM [facility] Chloride 108 96 - 110 mmol/L LAB CHEMISTRY METHOD 05/05/2024 10:49 AM [facility] CO2 25 21 - 32 mmol/L LAB CHEMISTRY METHOD 05/05/2024 10:49 AM [facility] Anion Gap 9 3 - 11 LAB CHEMISTRY METHOD 05/05/2024 10:49 AM [facility] Glucose 138(H) 70 - 100 mg/dL LAB CHEMISTRY METHOD 05/05/2024 10:49 AM [facility] BUN 12 5 - 25 mg/dL LAB CHEMISTRY METHOD 05/05/2024 10:49 AM [facility] Creatinine 1.20(H) 0.50 - 1.10 mg/dL LAB CHEMISTRY METHOD 05/05/2024 10:49 AM [facility] eGFR 45(L) >=60 mL/min/1. 73m2 LAB CHEMISTRY METHOD 05/05/2024 10:49 AM [facility] Comment:Calculation based on the Chronic Kidney Disease Epidemiology Collaboration (CKD-EPI) equation refit without adjustment for race. BUN/Creatinine Ratio 10.0 LAB CHEMISTRY METHOD 05/05/2024 10:49 AM [facility] Calcium 8.9 8.5 - 10.5 mg/dL LAB CHEMISTRY METHOD 05/05/2024 10:49 AM [facility] Blood Venous blood specimen / Unknown Venipuncture / Unknown 05/05/2024 9:06 AM EDT 05/05/2024 10:17 AM EDT us Chanda Cummins MD LAB BLOOD ORDERABLES Final Resul t [facility] [address] [place] [address], * (ABNORMAL) Complete blood count (05/05/2024 9:06 AM EDT) WBC 13.5(H) 4.8 - 10.8 K/mcL LAB HEMETOLOGY METHOD 05/05/2024 10:35 AM EDT [facility] RBC 4.90(H) 3.80 - 4.80 M/mcL LAB HEMETOLOGY METHOD 05/05/2024 10:35 AM EDT [facility] Hemoglobin 14.6 11.5 - 16.0 g/dL LAB HEMETOLOGY METHOD 05/05/2024 10:35 AM EDT [facility] Hematocrit 46.8 35.0 - 47.0 % LAB HEMETOLOGY METHOD 05/05/2024 10:35 AM EDT [facility] MCV 95.7 79.0 - 98.0 FL LAB HEMETOLOGY METHOD 05/05/2024 10:35 AM EDT [facility] MCH 29.9 27.0 - 32.0 pcg LAB HEMETOLOGY METHOD 05/05/2024 10:35 AM [facility] MCHC 31.2(L) 32.0 - 37.0 g/dL LAB HEMETOLOGY METHOD 05/05/2024 10:35 AM EDT [facility] RDW 14.0 11.0 - 15.0 % LAB HEMETOLOGY METHOD 05/05/2024 10:35 AM EDT [facility] Platelets 338 130 - 400 K/mcL LAB HEMETOLOGY METHOD 05/05/2024 10:35 AM EDT [facility] MPV 9.7 7.0 - 11.0 FL LAB HEMETOLOGY METHOD 05/05/2024 10:35 AM EDT [facility] NRBC 0.0 <1.0 % LAB HEMETOLOGY METHOD 05/05/2024 10:35 AM EDT [facility] NRBC Absolute 0.00 <0.10 K/mcL LAB HEMETOLOGY METHOD 05/05/2024 10:35 AM EDT [facility] Blood Venous blood specimen / Unknown Venipuncture / Unknown 05/05/2024 9:06 AM EDT 05/05/2024 10:17 AM EDT Chanda Cummins MD LAB BLOOD ORDERABLES Final Resul t Performing Organization Address City/[facility]/ZIP Co de Phone Number [facility] [address] [place] [address], [place] [phone] * Hemoglobin A1c (05/05/2024 9:06 AM EDT) Hemoglobin A1C 6.0 <6.5 % LAB CHEMISTRY METHOD 05/05/2024 1:43 PM EDT [facility] Mean Bld Glu Estim. 126 mg/dL LAB CHEMISTRY METHOD 05/05/2024 1:43 PM EDT [facility] Blood Venous blood specimen / Unknown Venipuncture / Unknown 05/05/2024 9:06 AM EDT 05/05/2024 10:17 AM EDT Chanda Cummins MD LAB BLOOD ORDERABLES Final Resul t [facility] [address] [place] [address], [place] [phone] documented in this encounter Visit Diagnoses Diagnosis Type 2 diabetes mellitus without complications (CMS/HCC V24, CMS/HCC V28) Essential (primary) hypertension Unspecified essential hypertension documented in this encounter Care Teams Security Operations Manager Relationship Specialty Start Date End Date Chanda Cummins MD [address] [place] [address] [address] [place] [address] PCP - General Geriatric Medicine 04/27/24 documented as of this encounter
--- OUTSIDE RECORDS SUMMARY | 2024-10-31 15:37 | XMS_ITS | Clinical Summary ---
Author Organization [address] [facility] Address [address] [place] [address] Phone Care Team Providers Care Hub Lead Name Role Phone Chanda Cummins MD Primary Care Provider [phone] Encounters Date Type Department Care Team Description 09/12/2024 Lab Requisition [facility] [address] [place] [id number] Payal Hung MD Urinary tract infection, site not specified 09/10/2024 Lab Requisition [facility] [address] [place] [phone] Payal Hung MD Chronic kidney disease, unspecified 09/06/2024 Lab Requisition [facility] [address] [place] [phone] Payal Hung MD Essential (primary) hypertension from Last 3 Months Social History Tobacco Use Types Packs/Day Years Used Date Smoking Tobacco: Never Assessed Comments Unknown Sex and Gender Information Value Date Recorded Sex Assigned at Not on file Legal Sex Female 1:18 PM EST Gender Identity Not on file Sexual Orientation Not on file Plan of Treatment Health Maintenance Due Date Last Done Comments DTaP,Tdap,and Td Vaccines (1 - Tdap) 10/10/1959 Pneumococcal Vaccine: 50+ Years (1 of 2 - PCV) 10/10/1959 Zoster Vaccines (1 of 2) 1990 RSV Immunization Adult Patients (1 - 1-dose 75+ series) 10/10/2015 Depression Screening 02/24/2024 Cholesterol Screening (Lipid Panel) 04/28/2024 Falls Risk Assessment 04/28/2024 Medicare Annual Wellness Visit 04/28/2024 Osteoporosis Screening (Bone Density Screening) 04/28/2024 Social Influencers of Health Screening 04/28/2024 COVID-19 Vaccine (1 - 2024-2 5 season) 2024 Influenza Vaccine (#1) 2024 Hypertension/CHF/CAD Annual BMP Blood Test 09/06/2025 09/06/2024, 05/05/2024, 04/27/2024 HIB Vaccines Aged Out No longer eligi ble based on patient's age to complete this topic HPV Vaccines Aged Out No longer eligi ble based on patient's age to complete this topic Hepatitis A Vaccines Aged Out No long er eligible based on patient's age to complete this topic Hepatitis B Vaccines Aged Out No long er eligible based on patient's age to complete this topic IPV Vaccines Aged Out No longer eligi ble based on patient's age to complete this topic MMR Vaccines Aged Out No longer eligi ble based on patient's age to complete this topic Meningococcal ACWY Vaccine Aged Out N o longer eligible based on patient's age to complete this topic Meningococcal B Vaccine Aged Out No l onger eligible based on patient's age to complete this topic RSV Immunization Patients Under 20 months Aged Out No longer eligible b ased on patient's age to complete this topic Varicella Vaccines Aged Out No longer eligible based on patient's age to complete this topic Procedures Procedure Name Priority Date/Time Associated Diagnosis Comments CBC WITH AUTO DIFFERENTIAL Routine 09/10/2024 6:43 AM EDT Chronic kidney disease, unspecified CBC AND DIFFERENTIAL Routine 09/10/2024 6:43 AM EDT Chronic kidney disease, unspecified URINALYSIS WITH REFLEX MICROSCOPIC Routine 09/09/2024 12:00 AM EDT Urinary tract infection, site not specified URINALYSIS WITH REFLEX MICROSCOPIC Routine 09/09/2024 12:00 AM EDT Urinary tract infection, site not specified CULTURE URINE Routine 09/09/2024 12:00 AM EDT Urinary tract infection, site not specified CBC WITH AUTO DIFFERENTIAL Routine 09/06/2024 6:04 AM EDT Essential (primary) hypertension BASIC METABOLIC PANEL Routine 09/06/2024 6:04 AM EDT Essential (primary) hypertension CBC AND DIFFERENTIAL Routine 09/06/2024 6:04 AM EDT Essential (primary) hypertension from Last 3 Months Results * (ABNORMAL) CBC auto differential (09/10/2024 6:43 AM EDT) Only the most recent of2 resultswithin the time period is included. WBC 12.0(H) 4.8 - 10.8 K/mcL LAB HEMETOLOGY METHOD 09/10/2024 8:30 AM [facility] RBC 3.90 3.80 - 4.80 M/mcL LAB HEMETOLOGY METHOD 09/10/2024 8:30 AM [facility] Hemoglobin 11.5 11.5 - 16.0 g/dL LAB HEMETOLOGY METHOD 09/10/2024 8:30 AM [facility] Hematocrit 36.5 35.0 - 47.0 % LAB HEMETOLOGY METHOD 09/10/2024 8:30 AM [facility] MCV 93.6 79.0 - 98.0 FL LAB HEMETOLOGY METHOD 09/10/2024 8:30 AM [facility] MCH 29.5 27.0 - 32.0 pcg LAB HEMETOLOGY METHOD 09/10/2024 8:30 AM [facility] MCHC 31.5(L) 32.0 - 37.0 g/dL LAB HEMETOLOGY METHOD 09/10/2024 8:30 AM [facility] RDW 15.9(H) 11.0 - 15.0 % LAB HEMETOLOGY METHOD 09/10/2024 8:30 AM [facility] Platelets 227 130 - 400 K/mcL LAB HEMETOLOGY METHOD 09/10/2024 8:30 AM [facility] MPV 10.0 7.0 - 11.0 FL LAB HEMETOLOGY METHOD 09/10/2024 [facility] NRBC 0.0 <1.0 % LAB HEMETOLOGY METHOD 09/10/2024 8:30 AM [facility] NRBC Absolute 0.00 <0.10 K/mcL LAB HEMETOLOGY METHOD 09/10/2024 8:30 AM [facility] Neutrophils Relative 65.2 % LAB HEMETOLOGY METHOD 09/10/2024 8:30 AM [facility] Lymphocytes Relative 22.3 % LAB HEMETOLOGY METHOD 09/10/2024 8:30 AM [facility] Monocytes Relative 8.4 % LAB HEMETOLOGY METHOD 09/10/2024 8:30 AM [facility] Eosinophils Relative 2.4 % LAB HEMETOLOGY METHOD 09/10/2024 8:30 AM [facility] Basophils Relative 0.8 % LAB HEMETOLOGY METHOD 09/10/2024 8:30 AM [facility] Immature Granulocytes Relative 0.9 % LAB HEMETOLOGY METHOD 09/10/2024 8:30 AM [facility] Neutrophils Absolute 7.82(H) 1.50 - 7.00 K/mcL LAB HEMETOLOGY METHOD 09/10/2024 8:30 AM [facility] Lymphocytes Absolute 2.67 1.00 - 5.00 K/mcL LAB HEMETOLOGY METHOD 09/10/2024 8:30 AM [facility] Monocytes Absolute 1.01(H) 0.20 - 1.00 K/mcL LAB HEMETOLOGY METHOD 09/10/2024 8:30 AM [facility] Eosinophils Absolute 0.29 0.00 - 0.50 K/mcL LAB HEMETOLOGY METHOD 09/10/2024 8:30 AM [facility] Basophils Absolute 0.09 0.00 - 0.20 K/mcL LAB HEMETOLOGY METHOD 09/10/2024 8:30 AM EDT [facility] Immature Granulocytes Absolute 0.11(H) 0.00 - 0.03 K/mcL LAB HEMETOLOGY METHOD 09/10/2024 8:30 AM [facility] Blood Venous blood specimen / Unknown Venipuncture / Unknown 09/10/2024 6:43 AM EDT 09/10/2024 8:12 AM EDT us Payal Hung MD LAB BLOOD ORDERABLES Final Resu lt [facility] [address] [place] [address], [place] [phone] * (ABNORMAL) Urinalysis with reflex microscopic (09/09/2024 12:00 AM EDT) Pathologist [facility] [place] Specific [place] Urine 1.016 1.003 - 1.030 LAB URINALYSIS - AUTOMATED METHOD 09/12/2024 11:07 AM [facility] pH, Urine 6.5 5.0 - 8.0 pH LAB URINALYSIS - AUTOMATED METHOD 09/12/2024 11:07 AM [facility] Leukocytes, Urine Large(A) Negative LAB URINALYSIS - AUTOMATED METHOD 09/12/2024 11:07 AM [facility] Nitrite, Urine Negative Negative LAB URINALYSIS - AUTOMATED METHOD 09/12/2024 11:07 AM [facility] Protein, Urine 30(A) <=Trace mg/dL LAB URINALYSIS - AUTOMATED METHOD 09/12/2024 11:07 AM [facility] Glucose, Urine Negative Negative mg/dL LAB URINALYSIS - AUTOMATED METHOD 09/12/2024 11:07 AM [facility] Ketones, Urine Trace(A) Negative mg/dL LAB URINALYSIS - AUTOMATED METHOD 09/12/2024 11:07 AM [facility] Urobilinogen , Urine 0.2 0.2 - 1.0 mg/dL LAB URINALYSIS - AUTOMATED METHOD 09/12/2024 11:07 AM [facility] Bilirubin, Urine Negative Negative LAB URINALYSIS - AUTOMATED METHOD 09/12/2024 11:07 AM [facility] Blood, Urine Trace(A) Negative LAB URINALYSIS - AUTOMATED METHOD 09/12/2024 11:07 AM [facility] RBC, Urine 0.0 0 - 4 /HPF LAB URINALYSIS - AUTOMATED METHOD 09/12/2024 11:07 AM [facility] WBC, Urine 82.5(H) 0 - 4 /HPF LAB URINALYSIS - AUTOMATED METHOD 09/12/2024 11:07 AM [facility] Squamous Epithelial, Urine >100(H) 0 - 60 /LPF LAB URINALYSIS - AUTOMATED METHOD 09/12/2024 11:07 AM [facility] Non-Squamous Epithelial, Urine >30 TRANSITIONAL EPI /LPF LAB URINALYSIS - AUTOMATED METHOD 09/12/2024 11:07 AM [facility] Crystals, Urine HEAVY CALCIUM OXALATE /LPF LAB URINALYSIS - AUTOMATED METHOD 09/12/2024 11:07 AM [facility] Bacteria, Urine Moderate(A) Negative /HPF LAB URINALYSIS - AUTOMATED METHOD 09/12/2024 11:07 AM [facility] Hyaline Casts, Urine 0.0 0 - 3 /LPF LAB URINALYSIS - AUTOMATED METHOD 09/12/2024 11:07 AM [facility] Yeast, Urine Present(A) None /HPF LAB URINALYSIS - AUTOMATED METHOD 09/12/2024 11:07 AM [facility] Urine Urine specimen obtained by clean catch procedure / Unknown Non-blood Collection / Unknown 09/09/2024 09/12/2024 10:19 AM EDT us Payal Hung MD LAB URINE ORDERABLES Final Resu lt [facility] [address] [place] [address], [place] [phone] * Culture urine (09/09/2024 12:00 AM EDT) [facility] Culture, Urine >100,000 CFU/mL Mixed bacterial morphotypes present suggestive of possible contamination during collection. Suggest appropriate recollection if clinically indicated. 09/13/2024 10:02 AM EDT [facility] Urine Urine specimen obtained by clean catch procedure / Unknown Non-blood Collection / Unknown 09/09/2024 09/12/2024 10:19 AM EDT us Payal Hung MD LAB MICROBIOLOGY - GENERAL ORDE RABLES Final Result Performing Organization Address [facility]/ZIP Co de Phone Number [facility] [address] [place] [address], [place] [phone] * (ABNORMAL) Basic metabolic panel (09/06/2024 6:04 AM EDT) Pathologist [facility] [place] Sodium 143 133 - 145 mmol/L LAB CHEMISTRY METHOD 09/06/2024 10:12 AM EDT [facility] Potassium 3.9 3.5 - 5.5 mmol/L LAB CHEMISTRY METHOD 09/06/2024 10:12 AM EDT [facility] Chloride 107 96 - 110 mmol/L LAB CHEMISTRY METHOD 09/06/2024 10:12 AM EDT [facility] CO2 29 21 - 32 mmol/L LAB CHEMISTRY METHOD 09/06/2024 10:12 AM EDT [facility] Anion Gap 7 3 - 11 LAB CHEMISTRY METHOD 09/06/2024 10:12 AM EDT [facility] Glucose 164(H) 70 - 100 mg/dL LAB CHEMISTRY METHOD 09/06/2024 10:12 AM EDT [facility] BUN 14 5 - 25 mg/dL LAB CHEMISTRY METHOD 09/06/2024 10:12 AM [facility] Creatinine 0.82 0.50 - 1.10 mg/dL LAB CHEMISTRY METHOD 09/06/2024 10:12 AM EDT [facility] eGFR 71 >=60 mL/min/1. 73m2 LAB CHEMISTRY METHOD 09/06/2024 10:12 AM EDT [facility] Comment:Calculation based on the Chronic Kidney Disease Epidemiology Collaboration (CKD-EPI) equation refit without adjustment for race. BUN/Creatinine Ratio 17.1 LAB CHEMISTRY METHOD 09/06/2024 10:12 AM [facility] Calcium 8.9 8.5 - 10.5 mg/dL LAB CHEMISTRY METHOD 09/06/2024 10:12 AM T [facility] Blood Venous blood specimen / Unknown Venipuncture / Unknown 09/06/2024 6:04 AM EDT 09/06/2024 9:00 AM EDT us Payal Hung MD LAB BLOOD ORDERABLES Final Resu lt [facility] [address] [place] [address], from Last 3 Months Insurance [employer] Care Teams Hub Lead Relationship Specialty Start Date End Date Chanda Cummins MD [address] [place] [address] [address] [place] [address] PCP - General Geriatric Medicine 04/27/24
--- OUTSIDE RECORDS SUMMARY | 2024-10-31 15:37 | XMS_ITS | Encounter Summary ---
[facility] Address [address] [place] [address] Care Team Providers Care Cumulative Effects Analyst Name Role Phone Chanda Cummins MD Primary Care Provider [phone] Encounter Details Date Type Department Care Team (Late st Contact Info) Description 09/06/2024 Lab Requisition [facility] - Main Lab [address] [place] [address] Payal Hung MD [address] [place] [address] Essential (primary) hypertension Social History Tobacco Use [...] Diagnosis Comments CBC WITH AUTO DIFFERENTIAL Routine 09/06/2024 6:04 AM EDT Essential (primary) hypertension CBC AND DIFFERENTIAL Routine 09/06/2024 6:04 AM EDT Essential (primary) hypertension BASIC METABOLIC PANEL Routine 09/06/2024 6:04 AM EDT Essential (primary) hypertension documented in this encounter Results * (ABNORMAL) CBC auto differential (09/06/2024 6:04 AM EDT) WBC 13.8(H) 4.8 - 10.8 K/[facility] LAB HEMETOLOGY METHOD 09/06/2024 9:38 AM EDT [facility] RBC 3.90 3.80 - 4.80 M/[facility] LAB HEMETOLOGY METHOD 09/06/2024 9:[address] [facility] Hemoglobin 11.3(L) 11.5 - 16.0 g/dL LAB HEMETOLOGY METHOD 09/06/2024 9:[address] [facility] Hematocrit 37.2 35.0 - 47.0 % LAB HEMETOLOGY METHOD 09/06/2024 9:[address] [facility] MCV 94.4 79.0 - 98.0 FL LAB HEMETOLOGY METHOD 09/06/2024 9:[address] [facility] MCH 28.7 27.0 - 32.0 pcg LAB HEMETOLOGY METHOD 09/06/2024 9:[address] [facility] MCHC 30.4(L) 32.0 - 37.0 g/dL LAB HEMETOLOGY METHOD 09/06/2024 9:[address] [facility] RDW 15.9(H) 11.0 - 15.0 % LAB HEMETOLOGY METHOD 09/06/2024 9:[address] [facility] Platelets 195 130 - 400 K/mcL LAB HEMETOLOGY METHOD 09/06/2024 9:[address] [facility] MPV 11.0 7.0 - 11.0 FL LAB HEMETOLOGY METHOD 09/06/2024 9:[address] [facility] NRBC 0.0 <1.0 % LAB HEMETOLOGY METHOD 09/06/2024 9:[address] [facility] NRBC Absolute 0.00 <0.10 K/mcL LAB HEMETOLOGY METHOD 09/06/2024 9:[address] [facility] Neutrophils Relative 68.0 % LAB HEMETOLOGY METHOD 09/06/2024 9:[address] [facility] Lymphocytes Relative 19.3 % LAB HEMETOLOGY METHOD 09/06/2024 9:[address] [facility] Monocytes Relative 8.8 % LAB HEMETOLOGY METHOD 09/06/2024 9:[address] [facility] Eosinophils Relative 1.2 % LAB HEMETOLOGY METHOD 09/06/2024 9:[address] [facility] Basophils Relative 1.0 % LAB HEMETOLOGY METHOD 09/06/2024 9:[address] [facility] Immature Granulocytes Relative 1.7 % LAB HEMETOLOGY METHOD 09/06/2024 9:[address] [facility] Neutrophils Absolute 9.38(H) 1.50 - 7.00 K/mcL LAB HEMETOLOGY METHOD 09/06/2024 9:[address] [facility] Lymphocytes Absolute 2.66 1.00 - 5.00 K/mcL LAB HEMETOLOGY METHOD 09/06/2024 9:[address] [facility] Monocytes Absolute 1.22(H) 0.20 - 1.00 K/mcL LAB HEMETOLOGY METHOD 09/06/2024 9:[address] [facility] Eosinophils Absolute 0.17 0.00 - 0.50 K/mcL LAB HEMETOLOGY METHOD 09/06/2024 9:[address] [facility] Basophils Absolute 0.14 0.00 - 0.20 K/mcL LAB HEMETOLOGY METHOD 09/06/2024 9:[address] [facility] Immature Granulocytes Absolute 0.24(H) 0.00 - 0.03 K/mcL LAB HEMETOLOGY METHOD 09/06/2024 9:[address] [facility] Blood Venous blood specimen / Unknown Venipuncture / Unknown 09/06/2024 6:04 AM EDT 09/06/2024 9:00 AM EDT us Payal Hung MD LAB BLOOD ORDERABLES Final Resu lt [facility] [address] [place] [address], * (ABNORMAL) Basic metabolic panel (09/06/2024 6:04 AM EDT) Sodium 143 133 - 145 mmol/L LAB CHEMISTRY METHOD 09/06/2024 10:[address] [facility] Potassium 3.9 3.5 - 5.5 mmol/L LAB CHEMISTRY METHOD 09/06/2024 10:[address] [facility] Chloride 107 96 - 110 mmol/L LAB CHEMISTRY METHOD 09/06/2024 10:[address] [facility] CO2 29 21 - 32 mmol/L LAB CHEMISTRY METHOD 09/06/2024 10:[address] [facility] Anion Gap 7 3 - 11 LAB CHEMISTRY METHOD 09/06/2024 10:[address] [facility] Glucose 164(H) 70 - 100 mg/dL LAB CHEMISTRY METHOD 09/06/2024 10:[address] [facility] BUN 14 5 - 25 mg/dL LAB CHEMISTRY METHOD 09/06/2024 10:[address] [facility] Creatinine 0.82 0.50 - 1.10 mg/dL LAB CHEMISTRY METHOD 09/06/2024 10:[address] [facility] eGFR 71 >=60 mL/min/1. 73m2 LAB CHEMISTRY METHOD 09/06/2024 10:[address] [facility] Comment:Calculation based on the Chronic Kidney Disease Epidemiology Collaboration (CKD-EPI) equation refit without adjustment for race. BUN/Creatinine Ratio 17.1 LAB CHEMISTRY METHOD 09/06/2024 10:[address] [facility] Calcium 8.9 8.5 - 10.5 mg/dL LAB CHEMISTRY METHOD 09/06/2024 10:[address] [facility] Blood Venous blood specimen / Unknown Venipuncture / Unknown 09/06/2024 6:04 AM EDT 09/06/2024 9:00 AM EDT us Payal Hung MD LAB BLOOD ORDERABLES Final Resu lt [facility] ([facility] [place] [address] [place] [address], documented in this encounter Visit Diagnoses Diagnosis Essential (primary) hypertension Unspecified essential hypertension documented in this encounter Care Teams Cumulative Effects Analyst Relationship Specialty Start Date End Date Chanda Cummins MD [address] [place] [address] [address] [place] [address] PCP - General Geriatric Medicine 04/27/24 documented as of this encounter
--- OUTSIDE RECORDS SUMMARY | 2024-10-31 15:37 | XMS_ITS | Encounter Summary ---
[facility] Organization [facility] Address [address] [place] [address] Care Team Providers Care Vice President Sales Name Role Phone Chanda Cummins MD Primary Care Provider [phone] Encounter Details Date Type Department Care Team (Late st Contact Info) Description 09/10/2024 Lab Requisition [facility] - Main Lab [address] [place] [address] Payal Hung MD [address] [place] [id number] Chronic kidney disease, unspecified Social History Tobacco Use Types Packs/Day Years [...] 6:43 AM EDT Chronic kidney disease, unspecified documented in this encounter Results * (ABNORMAL) CBC auto differential (09/10/2024 6:43 AM EDT) WBC 12.0(H) 4.8 - 10.8 K/[facility] LAB HEMETOLOGY METHOD 09/10/2024 8:30 AM EDT [facility] LAB RBC 3.90 3.80 - 4.80 M/[facility] LAB HEMETOLOGY METHOD 09/10/2024 8:30 AM EDT [facility] LAB Hemoglobin 11.5 11.5 - 16.0 g/dL LAB HEMETOLOGY METHOD 09/10/2024 8:30 AM EDT [facility] LAB Hematocrit 36.5 35.0 - 47.0 % LAB HEMETOLOGY METHOD 09/10/2024 8:30 AM EDT [facility] LAB MCV 93.6 79.0 - 98.0 FL LAB HEMETOLOGY METHOD 09/10/2024 8:30 AM EDT [facility] LAB MCH 29.5 27.0 - 32.0 pcg LAB HEMETOLOGY METHOD 09/10/2024 8:30 AM EDT [facility] LAB MCHC 31.5(L) 32.0 - 37.0 g/dL LAB HEMETOLOGY METHOD 09/10/2024 8:30 AM [facility] LAB RDW 15.9(H) 11.0 - 15.0 % LAB [facility] 227 130 - 400 K/mcL LAB HEMETOLOGY METHOD 09/10/2024 8:30 AM [facility] LAB MPV 10.0 7.0 - 11.0 FL LAB HEMETOLOGY METHOD 09/10/2024 8:30 AM [facility] LAB NRBC 0.0 <1.0 % LAB H[facility]ETOLOGY METHOD [facility] NR[facility] Absolute 0.00 <0.10 K/mcL LAB HEMETOLOGY METHOD [facility]/10[facility] Neutrophils Relative 65.2 % LAB HEMETOLOGY METHOD [facility] Lymphocytes Relative 22.3 % LAB HEMETOLOGY METHOD 09/10/2024 8:30 AM [facility] LAB Monocytes Relative 8.4 % LAB HEMETOLOGY METHOD 09/10/2024 8:30 AM EDT [facility] LAB Eosinophils Relative 2.4 % LAB HEMETOLOGY METHOD 09/10/2024 8:30 AM EDT [facility] LAB Basophils Relative 0.8 % LAB HEMETOLOGY METHOD 09/10/2024 8:30 AM EDT [facility] LAB Immature Granulocytes Relative 0.9 % LAB HEMETOLOGY METHOD 09/10/2024 8:30 AM EDT [facility] LAB Neutrophils Absolute 7.82(H) 1.50 - 7.00 K/mcL LAB HEMETOLOGY METHOD 09/10/2024 8:30 AM EDT [facility] LAB Lymphocytes Absolute 2.67 1.00 - 5.00 K/mcL LAB HEMETOLOGY METHOD 09/10/2024 8:30 AM EDT [facility] LAB Monocytes Absolute 1.01(H) 0.20 - 1.00 K/mcL LAB HEMETOLOGY METHOD 09/10/2024 8:30 AM EDT [facility] LAB Eosinophils Absolute 0.29 0.00 - 0.50 K/mcL LAB HEMETOLOGY METHOD 09/10/2024 8:30 AM EDT [facility] LAB Basophils Absolute 0.09 0.00 - 0.20 K/mcL LAB HEMETOLOGY METHOD 09/10/2024 8:30 AM EDT [facility] LAB Immature Granulocytes Absolute 0.11(H) 0.00 - 0.03 K/mcL LAB HEMETOLOGY METHOD 09/10/2024 8:30 AM EDT [facility] LAB Blood Venous blood specimen / Unknown Venipuncture / Unknown 09/10/2024 6:43 AM EDT 09/10/2024 8:12 AM EDT us Payal Hung MD LAB BLOOD ORDERABLES Final Resu lt [facility] [address] [place] [id number] [phone] documented in this encounter Visit Diagnoses Diagnosis Chronic kidney disease, unspecified documented in this encounter Care Teams Vice President Sales Relationship Specialty Start Date End Date Chanda Cummins MD [address] [place] [address] [address] [place] [address] PCP - General Geriatric Medicine 04/27/24 documented as of this encounter
--- OUTSIDE RECORDS SUMMARY | 2024-10-31 15:37 | XMS_ITS | Encounter Summary ---
Author Organization [facility] Address [address] [place] [address] Care Team Providers Care Divine Healer Name Role Phone Chanda Cummins MD Primary Care Provider [phone] Encounter Details Date Type Department Care Team (Late st Contact Info) Description 04/27/2024 Lab Requisition [facility] - Main Lab [address] [facility] [place] [address] Chanda Cummins MD [address] [place] [address] Hypotension, unspecified; Type 2 diabetes mellitus without complications (CMS/HCC V24, CMS/HCC V28) Social History Tobacco [...] Diagnosis Comments CBC WITH AUTO DIFFERENTIAL Routine 04/27/2024 7:40 AM EST Hypotension, unspecified Type 2 diabetes mellitus without complications (CMS/HCC) CBC AND DIFFERENTIAL Routine 04/27/2024 7:40 AM EST Hypotension, unspecified Type 2 diabetes mellitus without complications (CMS/HCC) COMPREHENSIVE METABOLIC PANEL Routine 04/27/2024 7:40 AM EST Hypotension, unspecified Type 2 diabetes mellitus without complications (CMS/HCC) documented in this encounter Results * (ABNORMAL) CBC auto differential (04/27/2024 7:40 AM EST) WBC 9.2 4.8 - 10.8 K/[facility] LAB HEMETOLOGY METHOD 04/27/2024 10:[address] [facility] LAB RBC 4.10 3.80 - 4.80 M/mcL LAB HEMETOLOGY METHOD 04/27/2024 10:[address] [facility] LAB Hemoglobin 12.5 11.5 - 16.0 g/dL LAB HEMETOLOGY METHOD 04/27/2024 10:[address] [facility] LAB Hematocrit 37.9 35.0 - 47.0 % LAB HEMETOLOGY METHOD 04/27/2024 10:[address] [facility] LAB MCV 92.2 79.0 - 98.0 FL LAB HEMETOLOGY METHOD 04/27/2024 10:[address] [facility] LAB MCH 30.4 27.0 - 32.0 pcg LAB HEMETOLOGY METHOD 04/27/2024 10:[address] [facility] LAB MCHC 33.0 32.0 - 37.0 g/dL LAB HEMETOLOGY METHOD 04/27/2024 10:[address] [facility] LAB RDW 13.6 11.0 - 15.0 % LAB HEMETOLOGY METHOD 04/27/2024 10:[address] [facility] LAB Platelets 208 130 - 400 K/mcL LAB HEMETOLOGY METHOD 04/27/2024 10:[address] [facility] LAB MPV 10.1 7.0 - 11.0 FL LAB HEMETOLOGY METHOD 04/27/2024 10:[address] [facility] NRBC 0.0 <1.0 % LAB HEMETOLOGY METHOD 04/27/2024 10:[address] [facility] LAB NRBC Absolute 0.00 <0.10 K/mcL LAB HEMETOLOGY METHOD 04/27/2024 10:[address] [facility] Neutrophils Relative 64.4 % LAB HEMETOLOGY METHOD 04/27/2024 10:[address] [facility] Lymphocytes Relative 18.1 % LAB HEMETOLOGY METHOD 04/27/2024 10:[address] [facility] Monocytes Relative 12.3 % LAB HEMETOLOGY METHOD 04/27/2024 10:[address] [facility] Eosinophils Relative 3.7 % LAB HEMETOLOGY METHOD 04/27/2024 10:[address] [facility] Basophils Relative 0.8 % LAB HEMETOLOGY METHOD 04/27/2024 10:[address] [facility] LAB Immature Granulocytes Relative 0.7 % LAB HEMETOLOGY METHOD 04/27/2024 10:[address] [facility] LAB Neutrophils Absolute 5.92 1.50 - 7.00 K/mcL LAB HEMETOLOGY METHOD 04/27/2024 10:[address] [facility] Lymphocytes Absolute 1.66 1.00 - 5.00 K/mcL LAB HEMETOLOGY METHOD 04/27/2024 10:[address] [facility] Monocytes Absolute 1.13(H) 0.20 - 1.00 K/mcL LAB HEMETOLOGY METHOD 04/27/2024 10:[address] [facility] LAB Eosinophils Absolute 0.34 0.00 - 0.50 K/mcL LAB HEMETOLOGY METHOD 04/27/2024 10:[address] [facility] Basophils Absolute 0.07 0.00 - 0.20 K/mcL LAB HEMETOLOGY METHOD 04/27/2024 10:[address] [facility] LAB Immature Granulocytes Absolute 0.06(H) 0.00 - 0.03 K/mcL LAB HEMETOLOGY METHOD 04/27/2024 10:[address] [facility] Blood Venous blood specimen / Unknown Venipuncture / Unknown 04/27/2024 7:40 AM EST 04/27/2024 10:25 AM EST Chanda Cummins MD LAB BLOOD ORDERABLES Final Resul t [facility] [address] [place] [address], * (ABNORMAL) Comprehensive metabolic panel (04/27/2024 7:40 AM EST) Sodium 143 133 - 145 mmol/L LAB CHEMISTRY METHOD 04/27/2024 11:[address] [facility] Potassium 3.5 3.5 - 5.5 mmol/L LAB CHEMISTRY METHOD 04/27/2024 11:[address] [facility] Chloride 106 96 - 110 mmol/L LAB CHEMISTRY METHOD 04/27/2024 11:[address] [facility] CO2 26 21 - 32 mmol/L LAB CHEMISTRY METHOD 04/27/2024 11:[address] [facility] Anion Gap 11 3 - 11 LAB CHEMISTRY METHOD 04/27/2024 11:[address] [facility] Glucose 212(H) 70 - 100 mg/dL LAB CHEMISTRY METHOD 04/27/2024 11:[address] [facility] BUN 13 5 - 25 mg/dL LAB CHEMISTRY METHOD 04/27/2024 11:[address] [facility] Creatinine 0.82 0.50 - 1.10 mg/dL LAB CHEMISTRY METHOD 04/27/2024 11:[address] [facility] LAB eGFR 71 >=60 mL/min/1. 73m2 LAB CHEMISTRY METHOD 04/27/2024 11:[address] [facility] LAB Comment:Calculation based on the Chronic Kidney Disease Epidemiology Collaboration (CKD-EPI) equation refit without adjustment for race. BUN/Creatinine Ratio 15.9 LAB CHEMISTRY METHOD 04/27/2024 11:[address] [facility] Calcium 8.6 8.5 - 10.5 mg/dL LAB CHEMISTRY METHOD 04/27/2024 11:[address] [facility] AST (SGOT) 20 10 - 42 unit/L LAB CHEMISTRY METHOD 04/27/2024 11:[address] [facility] ALT (SGPT) 24 10 - 60 unit/L LAB CHEMISTRY METHOD 04/27/2024 11:[address] [facility] Alkaline Phosphatase 85 42 - 121 unit/L LAB CHEMISTRY METHOD 04/27/2024 11:[address] [facility] Total Protein 5.9(L) 6.0 - 8.0 g/dL LAB CHEMISTRY METHOD 04/27/2024 11:[address] [facility] Albumin 3.1(L) 3.2 - 5.0 g/dL LAB CHEMISTRY METHOD 04/27/2024 11:[address] [facility] Total Bilirubin 0.4 0.0 - 1.4 mg/dL LAB CHEMISTRY METHOD 04/27/2024 11:[address] [facility] Blood Venous blood specimen / Unknown Venipuncture / Unknown 04/27/2024 7:40 AM EST 04/27/2024 10:25 AM EST Chanda Cummins MD LAB BLOOD ORDERABLES Final Resul t [facility] [address] [place] [address], documented in this encounter Visit Diagnoses Diagnosis Hypotension, unspecified Type 2 diabetes mellitus without complications (CMS/HCC V24, CMS/HCC V28) documented in this encounter Care Teams Divine Healer Relationship Specialty Start Date End Date Chanda Cummins MD [address] [facility] [address] [place] [address] PCP - General Geriatric Medicine 04/27/24 documented as of this encounter
== END 2024-10-31 14:08 | disposition home or self-care (01) ==
LOC: HO.HCS 13:19
PROVIDERS: PCP Internal Medicine; Visit Provider Internal Medicine
DX: I50.32 Chronic diastolic (congestive) heart failure (principal); I48.0 Paroxysmal atrial fibrillation; Z95.3 Presence of xenogenic heart valve; I05.9 Rheumatic mitral valve disease, unspecified; I10 Essential (primary) hypertension
CPT/HCPCS: 93010; 93280; 99214; G2211

== ENCOUNTER → 2024-10-31 13:18 | Outpatient (BNVA) | payer MEDICARE, SELFPAY | PROVIDERS: PCP Internal Medicine; Visit Provider Internal Medicine | DX: Z45.018 Encounter for adjustment and management of other part of cardiac pacemaker (principal); I48.0 Paroxysmal atrial fibrillation; I05.9 Rheumatic mitral valve disease, unspecified; I50.32 Chronic diastolic (congestive) heart failure; I11.0 Hypertensive heart disease with heart failure; Z87.891 Personal history of nicotine dependence | CPT/HCPCS: 93005; 93280; 99212 ==

== ENCOUNTER → 2024-11-07 23:59 | Outpatient (BNV) | payer MEDICARE, SELFPAY ==
--- NOTE | 2024-11-13 14:26 | MHC.OFFVIS ---
Intake Visit Reasons: Remote device check- [employer] Allergies No Known Allergies (NO KNOWN ALLERGIES) Allergy (Unknown, Verified 07/07/23 11:24) UNKNOWN FOR[facility]LY [facility], [facility] Medical History (Updated 11/13/24 @ 14:27 by Zhen Bowling MD) Essential hypertension Peripheral vascular disease Mitral annular calcification PAF (paroxysmal atrial fibrillation) Hypertension Diabetes Surgical History Status post transcatheter aortic valve replacement (TAVR) using bioprosthesis History of artificial heart valve Family History Father Diabetes CAD (coronary artery disease) Mother CAD (coronary artery disease) Social History Alcohol intake: never Patient Tobacco Use Status: Former Tobacco user Office Procedures Cardiac Device Check Cardiac Device Check Details: Date of service- 11/07/2024 ; Battery life >11 years; normal lead parameters; AP 8.4%; FRAME BANDER 100%; no significant arrhythmias. Overall normal device function. [id number] Cardiac Device Interrogation, pacemaker Procedure code (CPT) selection complete Assessment & Plan Assessment & Plan (1) Pacemaker: Code(s): Z95.0 - Presence of cardiac pacemaker Category: Medical (2) PAF (paroxysmal atrial fibrillation): Code(s): I48.0 - Paroxysmal atrial fibrillation Category: Medical (3) Status post transcatheter aortic valve replacement (TAVR) using bioprosthesis: Code(s): Z95.3 - Presence of xenogenic heart valve Category: Surgical Plan x Coding Level of Care Code Procedure Only Diagnoses Pacemaker Z95.0 PAF (paroxysmal atrial fibrillation) I48.0 Status post transcatheter aortic valve replacement (TAVR) using bioprosthesis Z95.3 CPT Codes Cardiac Device Check - Cardiac Device 12: [id number] Cardiac Device Interrogation, pacemaker ([id number])
== END ==
PROVIDERS: PCP Internal Medicine; Visit Provider Internal Medicine
DX: I48.0 Paroxysmal atrial fibrillation (principal); Z95.0 Presence of cardiac pacemaker; Z95.3 Presence of xenogenic heart valve
CPT/HCPCS: 93294

== ENCOUNTER 2024-12-01 12:30 | Outpatient (RCR) | payer MEDICARE, SELFPAY | END 2024-12-01 16:28 | disposition home or self-care (01) | LOC: HO.WCC 12:30 | PROVIDERS: PCP Internal Medicine; Visit Provider Colon & Rectal Surgery | DX: E11.622 Type 2 diabetes mellitus with other skin ulcer (principal); L89.152 Pressure ulcer of sacral region, stage 2; M62.84 Sarcopenia; Z79.4 Long term (current) use of insulin | CPT/HCPCS: 97597; 99202; 99212; 99213 ==

== ENCOUNTER → 2025-02-13 12:35 | Outpatient (BNV) | payer MEDICARE, SELFPAY | PROVIDERS: PCP Internal Medicine; Visit Provider Internal Medicine | DX: I48.0 Paroxysmal atrial fibrillation (principal) | CPT/HCPCS: 93294 ==